=== PATIENT | female | born 2000 | race Caucasian/White ===

== ENCOUNTER 2021-09-19 10:46 | Outpatient (CLI) | payer MEDICAID, SELFPAY ==
[2021-09-19 16:49] LABS: Ferritin* 5.1 ng/mL (6.24-137.0)
[2021-09-21 00:54] LABS: Rapid Plasma Reagin (RPR) Non Reactive (Non Reactive)
== END 2021-09-19 10:47 | disposition home or self-care (01) ==
LOC: NFLDREF 10:46
PROVIDERS: Visit Provider Advanced Practice Midwife
DX: Z34.90 Encounter for supervision of normal pregnancy, unspecified, unspecified trimester (principal)
CPT/HCPCS: 82728; 86592

== ENCOUNTER 2021-10-04 08:30 | Outpatient (RCR) | payer MEDICAID, SELFPAY ==
--- NOTE | 2021-09-25 14:40 | URNOTE ---
Received request for prior auth for Injectafer ([id number]). Per Estephania at [facility], prior auth is not required. Call ref #[id number]
[2021-09-27] MEDS: FERRIC CARBOXYMALTOSE 750 MG in 0.9 % SODIUM CHLORIDE 250 ml 250 ML 1060 MG IVPB (09:02)
[2021-09-27] MEDS: 0.9 % SODIUM CHLORIDE 250 ml IV (09:14)
[2021-09-27] MEDS: SODIUM CHLORIDE 0.9 % (FLUSH) 10 ML SYRINGE IVF ×2 (09:14→09:39)
[2021-09-27 10:03] VITALS: BP 105/68; PULSE 80; RESP 16; TEMP 36.4; O2SAT 99
[2021-10-04 08:33] VITALS: BP 107/68; PULSE 90; RESP 16; TEMP 36.7; O2SAT 97
[2021-10-04] MEDS: FERRIC CARBOXYMALTOSE 750 MG in 0.9 % SODIUM CHLORIDE 250 ml 250 ML 1060 MG IVPB (09:05)
[2021-10-04] MEDS: SODIUM CHLORIDE 0.9 % (FLUSH) 10 ML SYRINGE IVF (09:05)
[2021-10-04] MEDS: 0.9 % SODIUM CHLORIDE 250 ml IV (09:46)
[2021-10-04 10:00] VITALS: BP 94/60; PULSE 94; RESP 14; TEMP 36.1; O2SAT 96
== END 2022-03-26 23:59 | disposition home or self-care (01) ==
LOC: CCIC 08:30
PROVIDERS: PCP Registered Nurse; Visit Provider Clinical Nurse Specialist
DX: O99.012 Anemia complicating pregnancy, second trimester (principal)
CPT/HCPCS: 96365; 96374; J1439; J7050

== ENCOUNTER 2021-10-23 15:57 | Outpatient (CLI) | payer MEDICAID, SELFPAY ==
--- NOTE | 2021-10-23 16:00 | CRLHL7_ITS ---
For Patients: As a result of the Century Cures Act, medical imaging exams and procedure reports are released immediately into your electronic medical record. You may view this report before your referring provider. If you have questions, please contact your health care provider. INDICATION: SIZE LESS THAN DATES, HX IUGR COMPARISON: 07/23/2021 TECHNIQUE: Real time hernandez scale imaging of the fetus was performed. FINDINGS: Sonographic imaging demonstrates a single living intrauterine gestation. Fetus demonstrates a regular cardiac rate of 131 beats per minute. Fetus has a vertex position. The placenta lies posteriorly. Amniotic fluid volume appears normal and there is a single deepest vertical pocket: 4.1 cm. The estimated weight is 2002gm which lies at the 25th%. On the prior OB ultrasound exam dated 07/23/2021 the estimated weight was at the 38th%. BPD 23rd percentile. HC 63rd percentile. AC 22nd percentile. FL 25th percentile. The HC/AC ratio measures 1.12 range (0.96-1.11). Stable anterior fibroid measuring 1.9 x 0.9 x 1.5 cm. IMPRESSION: Sonographic gestational age 33 weeks 0 days and sonographic due date of 12/11/2021. Good correlation with dates. Normal interval growth. Estimated weight 25th percentile. Abdominal circumference 22nd percentile. Stable small anterior uterine fibroid measuring 1.9 x 0.9 x 1.5 cm. Dictated by Adi Askew MD @ 10/24/2021 10:52:40 AM (Electronically Signed)
== END 2021-10-23 15:58 | disposition home or self-care (01) ==
LOC: US 15:58
PROVIDERS: Visit Provider Registered Nurse
DX: O36.5930 Maternal care for other known or suspected poor fetal growth, third trimester, not applicable or unspecified (principal); Z3A.33 33 weeks gestation of pregnancy
CPT/HCPCS: 76816

== ENCOUNTER 2021-11-12 12:55 | Outpatient (CLI) | payer MEDICAID, SELFPAY ==
--- NOTE | 2021-11-12 13:00 | CRLHL7_ITS ---
For Patients: As a result of the Century Cures Act, medical imaging exams and procedure reports are released immediately into your electronic medical record. You may view this report before your referring provider. If you have questions, please contact your health care provider. INDICATION: Third trimester growth, history of IUGR TECHNIQUE: Real time hernandez scale imaging of the fetus was performed as well as color Doppler and spectral Doppler analysis of the umbilical artery. COMPARISON: 10/23/2021 FINDINGS: Sonographic imaging demonstrates a single living intrauterine gestation. Fetus demonstrates a regular cardiac rate of 133 beats per minute. Fetus has a vertex position. The placenta lies posteriorly. Amniotic fluid volume appears normal and there is a single deepest pocket of 2.7 cm. The estimated weight is 2415gm which lies at the 13th %. On the prior OB ultrasound dated 10/23/2021 the estimated weight was at the 25th percentile. There is adequate diastolic blood flow within the umbilical artery. The S/D ratio measures 3.1. The fetus was active and demonstrated normal breathing movements. There was normal flexion and extension of the trunk and extremities. Small anterior uterine fibroid again noted. IMPRESSION: Normal biophysical profile score 8/8. Sonographic gestational age 35 weeks 0 days and sonographic due date 12/17/2021. Sonographic age 1 week behind the clinical age. Estimated weight 13th percentile. Abdominal circumference 5th percentile. Dictated by Adi Askew MD @ 11/12/2021 2:08:41 PM (Electronically Signed)
== END 2021-11-12 12:56 | disposition home or self-care (01) ==
LOC: US 12:56
PROVIDERS: Visit Provider Physician Assistant
DX: O36.5930 Maternal care for other known or suspected poor fetal growth, third trimester, not applicable or unspecified (principal); Z3A.35 35 weeks gestation of pregnancy
CPT/HCPCS: 76816; 76819; 76820

== ENCOUNTER 2021-11-12 14:17 | Outpatient (CLI) | payer MEDICAID, SELFPAY ==
[2021-11-13 11:50] LABS: Strep B DNA Probe POSITIVE (Negative)
== END 2021-11-12 14:18 | disposition home or self-care (01) ==
LOC: NFLDREF 14:17
PROVIDERS: Visit Provider Physician Assistant
DX: Z34.90 Encounter for supervision of normal pregnancy, unspecified, unspecified trimester (principal)
CPT/HCPCS: 87081; 87653

== ENCOUNTER 2021-11-19 10:56 | Outpatient (CLI) | payer MEDICAID, SELFPAY ==
--- NOTE | 2021-11-19 11:00 | CRLHL7_ITS ---
For Patients: As a result of the Cures Act, medical imaging exams and procedure reports are released immediately into your electronic medical record. You may view this report before your referring provider. If you have questions, please contact your health care provider. OBSTETRICAL ULTRASOUND, 11/19/2021 CLINICAL HISTORY: IUGR. 2, para 1. DAVID by LMP: 12/10/2021 GESTATIONAL AGE: 37 weeks 0 days TECHNIQUE: Transabdominal pelvic ultrasound. FINDINGS: Cervix: Not visualized. position: Single fetus in vertex position. Amniotic fluid: 4.8 cm SDP. Placenta: Posterior. heart rate: 128 bpm. Umbilical artery S/D ratio: #1: 2.8, #2: 3.6 ( > 34 weeks = < 3.5) BIOPHYSICAL PROFILE Movement: 2 Tone: 2 Breathin Fluid: 2 Biophysical profile score: 8/8 IMPRESSION: Single live intrauterine gestation with biophysical profile score of 8 of 8. Umbilical artery systolic-diastolic ratio measures between 2.8 and 3.6. ANA CARDONA M.D. Diagnostic/Breast Radiologist [email or web address] Transcribed: 1:[address]/Dictated by: Ana Cardona MD @ 11/19/2021 11:44:00 AM (Electronically Signed)
== END 2021-11-19 10:57 | disposition home or self-care (01) ==
LOC: US 10:57
PROVIDERS: Visit Provider Physician Assistant
DX: O36.5930 Maternal care for other known or suspected poor fetal growth, third trimester, not applicable or unspecified (principal); O99.013 Anemia complicating pregnancy, third trimester; Z3A.37 37 weeks gestation of pregnancy
CPT/HCPCS: 76819; 76820

== ENCOUNTER 2021-11-26 15:47 | Inpatient (IN) | payer MEDICAID, SELFPAY ==
--- NOTE | 2021-11-26 13:00 | CRLHL7_ITS ---
For Patients: As a result of the Century Cures Act, medical imaging exams and procedure reports are released immediately into your electronic medical record. You may view this report before your referring provider. If you have questions, please contact your health care provider. INDICATION: Asymmetric growth restriction. TECHNIQUE: Ultrasound OB pelvis transabdominal. Real-time hernandez-scale imaging of the fetus was performed without stress testing. COMPARISON: 11/19/2021. FINDINGS: Sonographic imaging demonstrates a single living intrauterine gestation. Fetus demonstrates a regular cardiac rate of 131 beats per minute. Fetus has a cephalic orientation. Umbilical artery systolic/diastolic ratio is inconsistent ranging from 3.3 to 8.3. Amniotic fluid volume single deepest pocket 3.4 Cm 2/2. motion 2/2. tone 2/2. breathing movements 2/2. IMPRESSION: Single viable intrauterine with a biophysical profile 09/24. Dictated by Tito Zuniga MD @ 11/26/2021 2:32:08 PM (Electronically Signed)
[2021-11-26 15:45] VITALS: BP 121/72; PULSE 127; RESP 18; TEMP 37.6; O2SAT 100
--- NOTE | 2021-11-26 17:24 | P.LDBA_ITS ---
Subjective History of Present Illness Narrative: Patient is being admitted to Labor and Delivery for IOL for IUGR. She is a 21 year old at 38 0/7 weeks gestation. She has been followed for IUGR with regular BPP and doppler. Today, she had BPP 8/8, normal fluid, but one of 3 UA doppler readings was elevated. She also has history of previous for breech presentation. OB Problem List: Partner: Víctor, currently in [place] (detained at the border when her attempted to cross back into the [place]: 07/23/21). Girl at home: Angie. 11/12/21: ? Patient reported partner deported to [place] 1. Previous : Breech & IUGR ? ? Desires TOLAC ? ? Chance of successful : 61% ? ?? consent signin11/26/2021 ? ? Growth ultrasound 36 weeks:??Asymmetric growth restriction.?EFW 13%, BDP 12%, HC 53%,?AC 5%, FL 20% Weekly BPP with Dopplers: - Elevated dopplers today: 11/26/2021 - Will move towards delivery today at 38 0/7 due to FGR with elevated doppler 2. 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 Rubella nonimmune: MMR 5. Nausea and vomiting. ED visit at [place] [id number] 06/09/2021:? IV fluids and started Reglan? 6. Anemia Hemoglobin 9.8 1st OB Ferrous sulfate 325 06/26/2021:? Reported discontinuing ferrous sulfate secondary to constipation Hemoglobin 06/26/2021:? 10.4.? Will restart iron supplementation with stool softener HGB 8.9 on 09/19. She has been unable to tolerate PO iron. Iron infusions ordered. Also encouraged EOD supplementation with Floradix or Iferex.? 10-16-21:? Hemoglobin:? 11.0 11/12/21: hgb 12.5 7. History of seizures in 2011 or 2012 and again in April 2020. Pt states that they never found a cause and she was never treated. Experienced seizure like activity at the end of July and again 09/17/21. Neurologist referral placed on 09/19/2021. 10/03 Neurologist visit-more consistant with pre-syncpoe but wants to r/o seizures. EEG: normal, normal EKG. 11/12/21: patient reports 6 hour EEG results are pending 8. Meningitis in 2020 9. S<D @ 32 weeks:? Growth ultrasound:EFW 25%, AC 22% 10. Declined Tdap at 32 weeks.? Please offer again at next visit. Declined again at 33 week visit 11. GBS positive Covid: Flu: declines Tdap: declines 10/23/21 NEEDS pap pp Her full history and physical was dictated by Dr. Almanza today. Please see this for details. OB - H&P: Exam Physical Exam: Vital signs: Temp Pulse Resp BP Pulse Ox 99.7 F H 127 H 18 121/72 100 11/26/21 15:45 11/26/21 15:45 11/26/21 15:45 11/26/21 15:45 11/26/21 15:45 Narrative: Cervix 1 cm, 75%, high, anterior, moderate consistency. Vertex. heart tones: Baseline 130, accelerations present, no decelerations, moderate variability. OB - Problem Based A/P Additional Plan (1) Asymmetric intrauterine growth restriction: Status: Acute Plan: at 38 weeks, 0 days gestation with IUGR and newly elevated Doppler. Plan is induction of labor. Given previous , we must avoid prostaglandins for ripening. Thus, Cook catheter was placed with the help of sterile speculum in an aseptic fashion with the balloon tip within the lower uterine segment. This was in flated to 60 mL, and the vaginal balloon was inflated to 40. Patient tolerated this procedure well. Begin oxytocin upon removal of Cook catheter at 4:30 a.m.. Begin ampicillin for GBS positive status at midnight. Anticipate attempt at AROM in the morning. Currently with category 1 tracing. Continue monitoring throughout the night. (2) Patient desires vaginal after section (): Status: Acute (3) : Status: Acute (4) Positive GBS test: Status: Acute
[2021-11-26 18:32] LABS: Basophils Absolute Auto 0.02 K/uL (0.00-0.30); Basophils Percent Auto 0.2 % (0.0-3.0); Eosinophils Absolute Auto 0.04 K/uL (0.00-0.50); Eosinophils Percent Auto 0.4 % (0.0-7.0); Hematocrit 38.9 % (33.0-51.0); Hemoglobin* 12.9 gm/dL (12.0-16.0); Immature Granulocytes Abs Auto 0.03 K/uL (0.00-0.30); Lymphocytes Percent Auto 16.2 % (20-44); Mean Corpuscular HGB Conc 33 gm/dL (32-36); Mean Corpuscular Hemoglobin 28 pg (26-34); Mean Corpuscular Volume 85 fL (80-100); Monocytes Percent Auto 4.4 % (0.0-11.0); Neutrophils Percent Auto 78.5 % (42.0-72.0); Platelet Count* 268 K/uL (140-440); RDW Coefficient of Variation % 20.4 % (11.5-15.5); Red Blood Count 4.58 m/uL (4.00-5.20); White Blood Count* 10.98 K/uL (4.50-11.00)
[2021-11-26 18:36] VITALS: TEMP 36.6
[2021-11-26 18:37] VITALS: BP 107/64; PULSE 81
[2021-11-26 18:40] LABS: Slide Review Reflex No
[2021-11-26 19:35] LABS: SARS PCR* Negative SARS-CoV-2 (Negative)
[2021-11-26] MEDS: hydrOXYzine pamoate 25 MG CAPSULE 100 MG PO (20:13)
[2021-11-26] MEDS: MORPHINE 10 MG/ML inj IM (20:29)
[2021-11-26 22:30] VITALS: BP 104/58; PULSE 77
[2021-11-26 22:48] VITALS: TEMP 36.6
[2021-11-27] VITALS (70 sets, daily range): BP systolic 82–140; BP diastolic 36–81; PULSE 73–173; RESP 16; TEMP 36.8–37.2; O2SAT 86–100
[2021-11-27] MEDS: LACTATED RINGERS 1000 ML 1,000 ML 10 ML IV (00:04)
[2021-11-27] MEDS: AMPICILLIN 2 GM in 0.9 % SODIUM CHLORIDE Mini-bag 100 ML IVPB (00:04)
[2021-11-27] MEDS: AMPICILLIN 1 GM in 0.9 % SODIUM CHLORIDE Mini-bag 100 ML IVPB ×3 (04:48→13:42)
[2021-11-27] MEDS: OXYTOCIN 30 unit/500 ML in NS 30 UNIT/500 ML BAG IVPB (04:49)
[2021-11-27] MEDS: fentaNYL 100 MCG/2 ML inj IVP ×2 (11:37→12:13)
[2021-11-27] MEDS: LACTATED RINGERS 1000 ML 1,000 ML 125 ML IV ×2 (14:30→17:13)
[2021-11-27] MEDS: ROPIVACAINE 0.2% 100 ml 100 ML 10 MG EPIDURAL (14:44)
[2021-11-27] MEDS: LIDOCAINE 2% (PF) 5 ML VIAL EPIDURAL (14:44)
--- NOTE | 2021-11-27 14:47 | P.ANBPRC_ITS ---
[facility] Medical History Fainting spell History of prior with small for gestational age Mild episode of recurrent major depressive disorder (01/07/19) Vitamin D deficiency (01/07/19) Surgical History (Updated 09/13/21 @ 14:26 by Edward Weldon) History of delivery, antepartum Social History Smoking Status: Never smoker Meds Home Medications and Allergies Home Medications Medication Instructions Recorded Confirmed Type calcium carbonate 200 mg calcium 200 mg PO QID 09/27/21 11/26/21 History (500 mg) chewable tablet (Antacid (calcium carbonate)) Allergies Allergy/AdvReac Type Severity Reaction Status Date / Time No Known Allergies Allergy Verified 11/26/21 13:54 Results Labs Labs: Laboratory Results - last 24 hr 11/26/21 11/26/21 11/26/21 18:18 18:18 Unknown WBC 10.98 RBC 4.58 Hgb 12.9 Hct 38.9 MCV 85 MCH 28 MCHC 33 RDW Coeff of Derick 20.4 H Plt Count 268 Neut % (Auto) 78.5 H Lymph % (Auto) 16.2 L Villalba % (Auto) 4.4 Eos % (Auto) 0.4 Baso % (Auto) 0.2 Neut # (Auto) 8.60 H Lymph # (Auto) 1.80 Villalba # (Auto) 0.50 Eos # (Auto) 0.04 Baso # (Auto) 0.02 Abs Immat Gran (auto) 0.03 SARS-CoV-2 (PCR) Negative SARS-CoV-2 Blood Type AB Positive Antibody Screen NEGATIVE Crossmatch (AHG) See Detail Vital Signs Vital Signs: Last Vital Signs Temp 98.6 F 11/27/21 14:47 Pulse 125 H 11/27/21 14:46 Resp 18 11/26/21 15:45 BP 101/59 L 11/27/21 14:46 Pulse Ox 100 11/27/21 14:40 Weight: 164.8 kg Height: 152.4 cm Anesthesia Procedures Epidural Insertion Patient Location: OB Start Time: 14:15 Stop Time: 15:00 Start Date: 11/27/21 Stop Date: 11/27/21 Reason for Block: primary anesthetic Patient Position: sitting Performed By: Jair Lewis Preanesthetic Checklist: IV checked, risks and benefits discussed, surgical consent, monitors and equipment checked, pre-op evaluation, timeout performed and anesthesia consent Prep: chlorhexidine gluconate Monitoring: blood pressure monitoring, court recording monitor, continuous pulse oximetry and heart rate Approach: midline Vertebral Space: lumbar (1-5) Needle Type: Tuohy needle Injection Technique: continuous catheter (catheter) Needle gauge: 17 Needle Length (cm): 10 cm Needle Insertion Depth (cm): 5 Catheter Gauge: 19 Catheter Type: multi-orifice Catheter at skin depth (cm): 10 Test Dose Result: negative and lidocaine 1.5% with epinephrine 1 to 200,000
--- NOTE | 2021-11-27 18:48 | PM.OBPRCVD ---
Procedure Delivery date: 11/27/21 Procedure Done: Global Events: Previous and Labor Induction Intrapartal Events: None Induction method: per pitocin protocol Delivery augmentation: rupture of membranes and pitocin Delivery monitor: external FHT Route of delivery: Episiotomy description: None Laceration description: Labial Delivery repair: Chromic Estimated blood loss (mL): 100 Anesthesia type: Epidural Disposition: floor Gender: Male presentation: vertex Placental Delivery Description: Spontaneous Cord Description: 3 Vessels OB Vag Delivery Procedures Additional Procedures ECV: No Cook Catheter Insertion: Yes NST: Yes D&C: No Laceration Repair: Yes Tubal Ligation : No Other: No Procedure Details: The patient is a 21 year-old G 2 P 1001 admitted on 11/26/2021 at 38 and 0/7 weeks gestation for TOLAC. Cervical exam on admission was 1 cm/25 % effaced/-4 station with membranes intact in vertex presentation. Contractions were every 10- 20 minutes. Category I tracing. GBS positive, treated with ampicillin during labor. AROM occurred at 1400 on 11/27 with clear fluid. Labor Analgesia: Epidural Pitocin: Yes Labor onset: 11/27 at 1500 Complete: 11/27 at 1751 Pushin/11 at 1800 Delivery: 11/27 at 1817 heart tones during second stage were Cat I a viable male infant delivered in vertex presentation over intact perineum via spontaneous vaginal delivery. was placed on maternal abdomen. Cord was clamped and cut after a 30-60 second delay. Nose and mouth were bulb suctioned. Infant weight: pending. 8 at 1 minute and 9 at 5 minutes. Shoulder dystocia: No. Nuchal cord: No . Placenta delivered spontaneously and complete at 18 20 with a 3 vessel cord. Complications: None. Mother and were stable after delivery. Laceration(s): First-degree, repaired with 2-0 chromic. Estimated blood loss: 100 mL. Sponge and needles counts are correct. Mother and were stable at the time of this note. Flor is planning on breast feeding. Infant name is Daniel
[2021-11-27] MEDS: IBUPROFEN 600 MG TABLET PO (22:03)
[2021-11-28 01:25] VITALS: BP 88/57; PULSE 91; RESP 16; TEMP 36.6; O2SAT 98
[2021-11-28] MEDS: ACETAMINOPHEN 500 MG TABLET 1000 MG PO ×2 (02:53→09:31)
[2021-11-28 04:45] VITALS: BP 95/60; PULSE 76; RESP 16; TEMP 36.4; O2SAT 99
[2021-11-28 05:26] LABS: Hemoglobin* 11.5 gm/dL (12.0-16.0)
[2021-11-28 07:35] VITALS: BP 101/66; PULSE 75; RESP 16; TEMP 36.5; O2SAT 99
--- NOTE | 2021-11-28 08:29 | PM.OBPNVD1 ---
OB - PN:Subj Subjective Time Seen by Provider: 08:00 Date Seen: 11/28/21 Interval history: Patient is a 21year old, G 2 now P 2? admitted on 11/27/21 at 39 Weeks, 0 Days gestation for IOL for IUGR.? She had an uncomplicated delivery.? She delivered a viable infant.? She is bottle feeding and the baby is not feeding well.? the patient has done well.? Vitals have been stable.? She has remained afebrile. SHe is passing gas, but has not had a bowel movement. Is having increased Patient comments OB post-: no complaints and pain well controlled [place] infant status: bottle feeding status: exclusively bottle feeding OB - PN: Obj Exam Physical Exam: Vital signs: Temp Pulse Resp BP Pulse Ox O2 Del Method 97.6 F 76 16 95/60 99 11/28/21 04:45 11/28/21 04:45 11/28/21 04:45 11/28/21 04:45 11/28/21 04:45 11/28/21 04:45 Constitutional: Constitutional: no acute distress and cooperative Routine HEENT Exam: Head: Present normocephalic Routine Neck Exam: Neck: Present full ROM Routine Respiratory Exam: Respiratory: Present CTA bilaterally Routine Cardiovascular Exam: Cardiovascular: Present RRR Routine Abdominal Exam: Abdominal: Present normal bowel sounds Fundus: Present firm (@U) Routine Extremities Exam: Extremities: Present full ROM Routine Back/Spine/Pelvis Exam: Back/Spine: Present full ROM Routine Skin Exam: Skin: Present dry and warm Routine Neurological Exam: Neurological: Present alert and oriented X3 Routine Psychiatric Exam: Psychiatric: Present normal affect and normal thought process Wound Management: Comments: Perineum healing well, mild edema OB - PN: Obj Data Labs Labs: Laboratory Results - last 24 hr 11/28/21 05:15 Hgb 11.5 L OB - PN: A/P Vaginal Delivery Assessment and Plan (1) Asymmetric intrauterine growth restriction: Status: Acute (2) Patient desires vaginal after section (): Status: Acute Plan day: 1 Plan: routine care Comments: Continue routine PP care Anticipate discharge home tomorrow Continue to work with nursing for feeds as needed.
[2021-11-28] MEDS: DOCUSATE SODIUM 100 MG CAPSULE PO (09:31)
[2021-11-28 12:05] VITALS: BP 103/72; PULSE 71; RESP 18; TEMP 36.6; O2SAT 97
[2021-11-28 16:27] VITALS: BP 98/66; PULSE 70; RESP 18; TEMP 36.7; O2SAT 97
[2021-11-28 16:50] LABS: Rubella Antibody IgG 7.2 IU/mL
[2021-11-28] MEDS: MEASLES,MUMPS,RUBELLA VACC/PF 1 DOSE INJ 1 EACH SUBCUT (18:59)
--- NOTE | 2021-12-11 16:17 | PM.OBDSVD1 ---
DS: Providers Provider Date Seen: 11/28/21 Date of admission: 11/26/21 15:47 Primary care physician: Not a Local Provider Attending Physician on discharge: Aria Umana MD DS: Diagnosis Discharge Diagnosis (1) , delivered: Status: Acute Exam Narrative: Exam Narrative: See progress note dated today by Norma Mejia. OB - DS: Summary Hospital Course Hospital Course: Patient is a 21year old, G 2 now P 2? admitted on 11/27/21 at 39 Weeks, 0 Days gestation for IOL for IUGR.? She had an uncomplicated delivery.? She delivered a viable? infant.? She is bottle feeding and the baby is not feeding well.? the patient has done well.? Vitals have been stable.? She has remained afebrile.? She is passing gas, but has not had a bowel movement.? Is having increased Patient comments OB post-: no complaints and pain well controlled. [place] infant status: bottle feeding status: exclusively bottle feeding Peripartum Data delivery method: [place] Gender: Male Time Spent with Patient Time attestation: Total time spent providing and/or coordinating discharge services: Discharge Plan Discharge Disposition: Home, Self-Care Date of Admission: 11/26/21 15:47 Attending Provider on Discharge: Aria Umana Consulting Providers: Norma Mejia Ngoc B Primary Care Provider: Provider,Not a Local Condition: Stable Anticipated Discharge Date/Time: 11/28/21 19:00 Discharge Medications: No Action acetaminophen [Tylenol] 325 mg capsule 325 mg PO ONCE PRN ibuprofen 200 mg capsule 400 mg PO Q8H Discharge Orders: Discharge Order (Routine); Ordered 11/28/21 Ordered By: Aria Umana Patient Education: OB Over the Counter Medication Information, OB Vaginal/Bottle Feeding Additional Instructions: Off Work or School for 6 weeks. Follow Up with [facility] provider in 2 weeks and 6 weeks at [facility] clinic. consultation services are available to all mothers and babies for the first year after delivery.? To make an appointment, please call [phone]. Activity Detail: Nothing in the vagina for 6 weeks. Discharge Diet: Regular Follow Up Appointments: Provider,Not a Local [Primary Care Provider] - Forms: [employer] Info Instructions
== END 2021-11-28 19:05 | disposition home or self-care (01) | DRG 807 ==
LOC: OB 15:55
PROVIDERS: Obstetrics & Gynecology; Physician Assistant; Admitting Provider Obstetrics & Gynecology; Visit Provider Obstetrics & Gynecology
DX: O34.211 Maternal care for low transverse scar from previous cesarean delivery (principal); Z37.0 Single live birth; O99.824 Streptococcus B carrier state complicating childbirth; O70.0 First degree perineal laceration during delivery; O99.02 Anemia complicating childbirth; D64.9 Anemia, unspecified; O36.5930 Maternal care for other known or suspected poor fetal growth, third trimester, not applicable or unspecified; Z3A.39 39 weeks gestation of pregnancy
CPT/HCPCS: 01967; 36415; 59200; 76819; 76820; 85018; 85025; 86762; 86850; 86900; 86901; 86922; 87635; A9270; C1726; J0290; J2270; J2795; J3010; J7120

== ENCOUNTER 2022-11-29 07:11 | Outpatient (CLI) | payer MEDICAID, SELFPAY ==
--- NOTE | 2022-11-29 07:15 | CRLHL7_ITS ---
For Patients: As a result of the Cures Act, medical imaging exams and procedure reports are released immediately into your electronic medical record. You may view this report before your referring provider. If you have questions, please contact your health care provider. INDICATION: First trimester scan, establish dates. COMPARISON: None. TECHNIQUE: Real-time hernandez-scale imaging of the pelvis was performed. FINDINGS: Sonographic imaging demonstrates a single living intrauterine gestation. The embryo demonstrates a regular cardiac rate measuring 168 beats per minute. The embryo`s crown-rump length measurement of 4.8 cm corresponds to a gestational age of 11 weeks 4 days with a sonographic due date of 06/16/2023. The yolk sac is not visualized. There are no gross abnormalities noted within the embryo at this early state of development. The gestational sac has a normal appearance. There is no evidence of a perigestational hemorrhage. The amount of fluid within the sac appears appropriate for gestational age. The cervix is closed. The myometrium appears normal. The ovaries are of normal size. There are no suspicious fluid collections noted in the cul-de-sac. IMPRESSION: Single living intrauterine with sonographic gestational age 11 weeks 4 days and sonographic due date 06/16/2023. Dictated by Adi Askew MD @ 11/29/2022 9:02:07 AM (Electronically Signed)
== END 2022-11-29 07:12 | disposition home or self-care (01) ==
PROVIDERS: Visit Provider Advanced Practice Midwife
DX: Z34.91 Encounter for supervision of normal pregnancy, unspecified, first trimester (principal); Z3A.11 11 weeks gestation of pregnancy
CPT/HCPCS: 76801

== ENCOUNTER 2022-11-29 09:02 | Outpatient (CLI) | payer MEDICAID, SELFPAY | END 2022-11-29 09:03 | disposition home or self-care (01) | PROVIDERS: Visit Provider Advanced Practice Midwife | DX: Z34.91 Encounter for supervision of normal pregnancy, unspecified, first trimester (principal); Z3A.11 11 weeks gestation of pregnancy | CPT/HCPCS: 86592; 86703; 86704; 86706; 86762; 86787; 86803; 86850; 86900; 86901; 87086; 87340 ==

== ENCOUNTER 2023-01-01 10:22 | Outpatient (CLI) | payer MEDICAID, SELFPAY | END 2023-01-01 10:23 | disposition home or self-care (01) | LOC: NFLDREF 01-07 12:14 | PROVIDERS: Visit Provider Obstetrics & Gynecology | DX: Z34.90 Encounter for supervision of normal pregnancy, unspecified, unspecified trimester (principal) | CPT/HCPCS: 87491; 87591 ==

== ENCOUNTER 2023-02-05 08:06 | Outpatient (CLI) | payer MEDICAID, SELFPAY ==
--- NOTE | 2023-02-05 08:15 | CRLHL7_ITS ---
For Patients: As a result of the 21st Century Cures Act, medical imaging exams and procedure reports are released immediately into your electronic medical record. You may view this report before your referring provider. If you have questions, please contact your health care provider. INDICATION: Anatomy. LMP: 09/12/2022. DAVID by LMP: 06/19/2023. GA: 20w, 6d. FINDINGS: position: Multiple positions. Cervix: Visualized. visualized. Technique: Transabdominal. Length of closed cervix: 4.3 cm. Placenta/cord: Posterior. Technique: Transabdominal. Placenta tip to internal OS: 6.2 cm. Umbilical Cord: 3-vessel cord. Placenta insertion: Marginal (within 2 cm of placenta edge). Amniotic Fluid: 4.8 cm SDP (greater than/equal to: 2- less than 8 cm). SURVEY: Observed Structures Calvarium/Spine: Cerebellum: 2.1 cm, 21w 2d. Cisterna Magna: 3.8 mm. Nuchal Fold: 4.9 mm. Lateral Ventricle: 5.0 mm. CSP: Yes. Midline Falx: Yes. Choroid Plexus: Yes. Spine: Yes. Abdomen: Stomach: Yes. Abd Cord Insertion: Yes. Urinary Bladder: Yes. Kidneys: Yes. Diaphragm: Yes. Face: Nose/lips: Yes. Orbital view: Yes. Profile: Yes. Limbs: Upper Extremities: Yes. Lower Extremities: Yes. Hands: Yes. Feet: Yes. Vascular: Four-Chamber Heart: Yes. LVOT: Yes. RVOT: Suboptimally seen. 3VV: Yes. 3VTV: Yes. BPD: 4.6 cm. 19w 6d, 13 percent. HC: 18.2 cm. 20w 4d, 31 percent. AC: 16.0 cm. 21w 1d, 53 percent. FL: 3.5 cm. 21w 0d, 44 percent. FL/AC: 21.65 percent. HC/AC Ratio: 1.14. Heart rate: 145 beats per minute. age by this US: 20w 5d. DAVID by this US: 06/20/2023. EFW: 388.92 g. Weight: 0 lbs, 14 oz. Percentile by DAVID: 50.2 percent. IMPRESSION: 1. Single live intrauterine gestation. No gross anomalies visualized. The right ventricular outflow tract suboptimally seen. 2. Marginal cord insertion 1.9 cm from the placenta edge. Ana Cardona M.D. Diagnostic/Breast Radiologist [email or web address] BELLO/jeramy / be/Dictated by: Ana Cardona MD @ 02/06/2023 3:27:00 PM (Electronically Signed)
== END 2023-02-05 08:07 | disposition home or self-care (01) ==
PROVIDERS: Visit Provider Obstetrics & Gynecology
DX: Z34.92 Encounter for supervision of normal pregnancy, unspecified, second trimester (principal); Z3A.20 20 weeks gestation of pregnancy
CPT/HCPCS: 76805

== ENCOUNTER 2023-04-01 08:00 | Outpatient (CLI) | payer MEDICAID, SELFPAY | END 2023-04-01 08:01 | disposition home or self-care (01) | LOC: NFLDREF 04-03 11:00 | PROVIDERS: Visit Provider Obstetrics & Gynecology | DX: Z34.93 Encounter for supervision of normal pregnancy, unspecified, third trimester (principal); Z3A.28 28 weeks gestation of pregnancy | CPT/HCPCS: 86592 ==

== ENCOUNTER 2023-04-01 08:11 | Outpatient (CLI) | payer MEDICAID, SELFPAY ==
--- NOTE | 2023-04-01 08:15 | US_ITS ---
Patient: FLORINA MITCHELL Facility:?[facility] Patient ID:?[id number] Site Patient ID:?[id number]. Site :?[id number] Study:?US-OB Pelvis growth check-04/01/2023 10:29:19 AM Ordering Physician:HINA Final Report: INDICATION: Third trimester scan, evaluate growth. COMPARISON: 02/05/2023 TECHNIQUE: Real time hernandez scale imaging of the fetus was performed. FINDINGS: Sonographic imaging demonstrates a single living intrauterine gestation. Fetus demonstrates a regular cardiac rate of 155 beats per minute. Fetus has a micheline breech position. The placenta lies posteriorly without evidence of placenta previa. Amniotic fluid volume appears normal and there is a single deepest vertical pocket: 4.8 cm. The estimated weight is 1261gm which lies at the 34th %. On the prior OB ultrasound exam dated 02/05/2023 the estimated weight was at the 50th%. BPD 17th percentile. HC 14th percentile. AC 63rd percentile. FL 12th percentile. The HC/AC ratio measures 1.04 range (1.01-1.21). IMPRESSION: Marginal cord insertion again noted. Sonographic gestational age 28 weeks 3 days and sonographic due date of 06/21/2023. Good correlation with dates. Normal interval growth. Estimated weight 34th percentile. Abdominal circumference 63rd percentile. Dictated by Adi Askew MD @ 04/04/2023 6:50:37 AM Signed by:?Adi Askew MD @04/04/2023 6:50:37 AM (Electronic Signature)
== END 2023-04-01 08:12 | disposition home or self-care (01) ==
LOC: US 08:13
PROVIDERS: Visit Provider Obstetrics & Gynecology
DX: Z34.93 Encounter for supervision of normal pregnancy, unspecified, third trimester (principal); Z3A.28 28 weeks gestation of pregnancy
CPT/HCPCS: 76816

== ENCOUNTER 2023-05-13 14:06 | Outpatient (CLI) | payer MEDICAID, SELFPAY | END 2023-05-13 14:07 | disposition home or self-care (01) | LOC: NFLDREF 14:07 | PROVIDERS: Visit Provider Registered Nurse | DX: Z34.93 Encounter for supervision of normal pregnancy, unspecified, third trimester (principal); Z3A.34 34 weeks gestation of pregnancy | CPT/HCPCS: 87086; 87186 ==

== ENCOUNTER 2023-05-22 11:58 | Outpatient (CLI) | payer MEDICAID, SELFPAY ==
--- NOTE | 2023-05-22 12:15 | US_ITS ---
Patient: FLORINA MITCHELL Facility:?[facility] Patient ID:?[id number] Site Patient ID:?[id number]. Site :?[id number] Study:?US-OB Pelvis GROWTH-05/22/2023 12:37:26 PM Ordering Physician:MARGIE HERNÁNDEZ Final Report: OBSTETRICAL ULTRASOUND DAVID by LMP: 06/19/2023. GA: 36 weeks 0 days. Gestation: Bar. COMPARISONS: 04/01/2023, 02/05/23, 11/29/2022. INDICATION: Desires . Growth. Cervix: Visualized. Position: Vertex. Amniotic Fluid: 3.8 cm SDP (N: ? 2x 1 cm) Placenta Technique: TA. Placenta Position: Posterior. Heart Rate: 145 bpm. BIOMETRY BPD: 9.1 cm, 36 weeks 6 days, 79th percentile. HC: 31.6 cm, 35 weeks 3 days, 12th percentile. AC: 33 cm, 36 weeks 6 days, 83rd percentile. FL: 6.8 cm, 35 weeks 0 days, 21st percentile. FL/AC Ratio: 20.64 percent. HC/AC Ratio: 0.96. EFW: 2893 grams, 6 pounds 6 ounces. Age by this US: 36 weeks 0 days. DAVID by this US: 06/19/2023. Percentile by DAVID: 59 percent. IMPRESSION: Single live intrauterine gestation at 36 weeks 0 days. DAVID of 06/19/2023. Estimated weight 2893 grams which lies at the 59th percentile. Ana Cardona M.D. Diagnostic/Breast Radiologist [email or web address] BELLO/shanti / DW/Dictated by: Ana Cardona MD @ 05/24/2023 7:48:00 PM Signed by:?Ana Cardona MD @05/25/2023 7:43:54 PM (Electronic Signature)
== END 2023-05-22 11:59 | disposition home or self-care (01) ==
LOC: US 12:00
PROVIDERS: Visit Provider Obstetrics & Gynecology
DX: Z34.93 Encounter for supervision of normal pregnancy, unspecified, third trimester (principal); Z3A.36 36 weeks gestation of pregnancy
CPT/HCPCS: 76816

== ENCOUNTER 2023-05-22 13:30 | Outpatient (CLI) | payer MEDICAID, SELFPAY ==
[2023-05-23 13:35] LABS: Strep B DNA Probe POSITIVE (Negative)
[2023-05-23 13:46] LABS: Strep B Susceptibility Needed? No
== END 2023-05-22 13:31 | disposition home or self-care (01) ==
LOC: NFLDREF 13:44
PROVIDERS: Visit Provider Obstetrics & Gynecology
DX: Z34.93 Encounter for supervision of normal pregnancy, unspecified, third trimester (principal)
CPT/HCPCS: 87081; 87086; 87653

== ENCOUNTER 2023-05-30 13:38 | Outpatient (CLI) | payer MEDICAID, SELFPAY | END 2023-05-30 13:39 | disposition home or self-care (01) | LOC: NFLDREF 06-06 07:39 | PROVIDERS: Visit Provider Obstetrics & Gynecology | DX: N39.0 Urinary tract infection, site not specified (principal); Z22.322 Carrier or suspected carrier of Methicillin resistant Staphylococcus aureus | CPT/HCPCS: 87086 ==

== ENCOUNTER 2023-06-10 11:38 | Inpatient (IN) | payer MEDICAID, SELFPAY ==
[2023-06-10] VITALS (23 sets, daily range): BP systolic 89–134; BP diastolic 52–77; PULSE 69–113; RESP 16–18; TEMP 36.7–37; O2SAT 91–100; BMI 38.0
[2023-06-10 11:33] LABS: Basophils Percent Auto 0.1 % (0.0-3.0); Eosinophils Percent Auto 0.1 % (0.0-7.0); Hematocrit 35.7 % (33.0-51.0); Immature Granulocytes Pct Auto 0.4 %; Mean Corpuscular HGB Conc 31 gm/dL (32-36); Mean Corpuscular Hemoglobin 24 pg (26-34); Mean Corpuscular Volume 79 fL (80-100); Monocytes Percent Auto 3.1 % (0.0-11.0); Neutrophils Percent Auto 84.3 % (42.0-72.0); Platelet Count* 318 K/uL (140-440); RDW Coefficient of Variation % 14.7 % (11.5-15.5); Red Blood Count 4.55 m/uL (4.00-5.20); White Blood Count* 13.38 K/uL (4.50-11.00)
[2023-06-10 11:42] LABS: Slide Review Reflex No
[2023-06-10] MEDS: AMPICILLIN 2 GM in 0.9 % SODIUM CHLORIDE Mini-bag 100 ML IVPB (11:50)
[2023-06-10] MEDS: LACTATED RINGERS 1000 ML 1,000 ML 125 ML IV (11:50)
[2023-06-10 13:08] LABS: Appearance Urine Clear (Clear); Bilirubin Urine Negative (Negative); Blood Urine Negative (Negative); Color Urine Yellow (Yellow); Glucose Urine Negative (Negative); Ketones Urine 2+ (Negative); Leukocyte Esterase Urine Trace (Negative); Nitrite Urine Negative (Negative); Protein Urine Negative (Negative); Specific Gravity Urine 1.025 (1.000-1.030); Urobilinogen Urine 0.2 (0.2-1.0)
[2023-06-10 13:45] LABS: RBC Urine 0-2 (0-2); Squamous Epithelial Cell Urine Moderate (None-Few)
[2023-06-10] MEDS: OXYTOCIN 30 unit/500 ML in NS 30 UNIT/500 ML BAG 300 UNIT IVPB (13:51)
[2023-06-10] MEDS: LIDOCAINE 1 % PF 30 ML INJECTION (13:55)
[2023-06-10] MEDS: IBUPROFEN 600 MG TABLET PO ×2 (14:36→21:03)
--- NOTE | 2023-06-10 14:52 | P.LDBA_ITS ---
Subjective History of Present Illness Narrative: Patient is being admitted to Labor and Delivery for VTOLAC. She is a 22 year old at 38 5/7 weeks gestation. Her full history and physical was dictated by Dr. Almanza on 05/30/23. Please see this for details. Patient called labor and delivery with concerns of painful contractions. History of 1 previous delivery and 1 successful . Upon arrival patient found 6cm dilated with bulging bag. Admitted in labor for delivery. History of UTI with MRSA, never completed nasal swabs-will need contact precautions. Specific Issues/Plans Desires g/c by urine next visit (ordered on 01/01): Negative 1. Daughter and have extra gene on Chromosome 22, 11.2 Had carrier screening previous, she is not a carrier Anatomy scan: EFW at 50.2% and AC at 53%tile. Normal 2. Hx of : breech & IUGR Had successful tolac in , desires again Chance of success: 86.1% consent signing: signed 05/30/23. Growth ultrasound 36 weeks:?05/22/23: EFW 59%tile, AC 83%tile. SDP 3.8 cm 3. 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 History of seizures in 2011 or 2012 and again in April 2020. Pt states that they never found a cause and she was never treated. Experienced seizure like activity at the end of July and again 09/17/21. 10/03 Neurologist visit-more consistent with pre-syncpoe but wants to r/o seizures. EEG: normal, normal EKG. 11/12/21: EGG normal 34 week visit: Patient reports episodes of feeling faint. Discussed possible etiologies. Encouraged increased hydration and eating small frequent meals. These episodes feel similar to what she experienced prior to seizure activity in the past. She didn't feel that her neurologist evaluated her appropriately and she would like a second opinion. Neurology referral placed. 6. Desires tubal : Plan for consent at 28 weeks: federal sterilization consent form signed on 04/01/23. DECLINED at 36 week visit Contraception: IUD placement (desire paragard) 7. Marginal cord insertion: plan for growth scan at 28 weeks and then 36 weeks 05/22/23: EFW 59%tile, AC 83%tile 8. [id number]: Called the patient and she declined adding MT21 to 28 weeks labs on 03/28/23 9. UTI with MRSA at 34 weeks. Treated with Macrobid BID x7 days. F/u UA: Still symptomatic - will treat with Macrobid BID x 7 days. Covid: Declined Flu: Declined on 01/01 Tdap: Declined 05/22/23 H&P: By Dr. Almanza on 05/30/23 NEEDS pap pp OB - Problem Based A/P Additional Plan (1) : Status: Acute (2) Marginal insertion of umbilical cord: Status: Acute (3) History of delivery, antepartum: Status: Acute Plan Allow labor and expect a vaginal delivery. Continuous monitoring. Interested in nitrous, does not desire epidural. GBS positive, antibiotics per protocol. OR team is in house and aware. OB Exam Physical Exam Vital signs: Temp Pulse Resp BP Pulse Ox 98.5 F 73 18 104/57 L 93 06/10/23 11:30 06/10/23 14:47 06/10/23 11:30 06/10/23 14:47 06/10/23 11:28 Detailed Labor and Delivery Exam Patient Gravid: Yes Dilation (cm): 6 Effacement (%): 90 Cervix position: mid Consistency: soft Contraction Frequency: Regular Tachysystole: No Contraction intensity: Moderate Fetus (Single) Station: -1 Amniotic Membrane Status: intact Heart Rate Baseline: 140 Monitor Accelerations: Present Monitor Decelerations: Variable [facility] Variability: Moderate (6-25)
--- NOTE | 2023-06-10 15:52 | W.PM.OBVAGDE ---
OB Procedure Vag Delivery Mother Details Mother Details: The patient is a 22 year-old, 3, Para 2, admitted on 06/10/23 at 38.5 Days gestation. : 3 Para: 2 Weeks Gestation: 38.5 Admission Date: 06/10/23 Additional Details Amniotic Membrane Status: AROM Amniotic Membrane Rupture Date: 06/10/23 Amniotic Membrane Rupture Time: 13:43 Amniotic Membrane Fluid Description: Clear Analgesia/Anesthesia Type: Nitrous Oxide Waterbirth: No Pitcoin: No Intrapartal Events: Precipitous Labor <3 Hrs Complete: 13:47 Pushin:47 Heart: We had difficulty with monitoring during admission. External monitoring had some episodes were we could not trace FHR due to maternal movement to manage pain of contractions. In general nurses at bedside, attempting replacement as soon as possible. But after 1pm FHR was extremely difficult to continuously monitor. Patient had also become much more symptomatic, she was checked and found at 8cm, bulging bag. We had been trying to avoid interventions such as AROM (GBS positive), but upon my arrival I stressed the importance of FHR monitoring in the case of a TOLAC and mostly close to the second stage of labor. I then recommended performance of AROM and placement of internal monitor. Her cervix was found a rim. heart tones after internal monitor placed showed FHR acceleration, variable deceleration with contractions, but immediately after this patient started to complain of significant pressure and desire to push. Patient pushed for 2 contractions and delivered her baby. Delivery Details Delivery Date: 06/10/23 Delivery Time: 13:50 Infant Gender: Female Infant Viability: Alive; Heart Rate Present Position at Delivery: OA Delivery Details: Delivered over intact perineum via spontaneous vaginal delivery. Cord was clamped and cut after a 30-60 second delay. Nose and mouth were bulb suctioned.? weight pending. Additional Details Shoulder Dystocia: No Placenta Delivery Time: 13:51 Placental Delivery Description: Spontaneous Delivery repair: Vicryl Procedure Done: Global Blood Loss: 100 Laceration: Periurethral - 1st Degree (Bleeding, repaired with Vicryl 4-0) Episiotomy Description: None Blood Loss Measurement Type: QBL Bakri Used: No Sponge/Need Count Correct: Yes Cord Vessel Description: 3 Vessels, Nuchal Cord and Delivered through Event Summary Status: Mother and were stable after delivery. Disposition: floor
[2023-06-10] MEDS: ACETAMINOPHEN 500 MG TABLET 1000 MG PO (20:09)
[2023-06-11] VITALS: BP 94/61; RESP 18; TEMP 36.6; O2SAT 99
[2023-06-11] MEDS: ACETAMINOPHEN 500 MG TABLET 1000 MG PO ×4 (01:51→22:25)
[2023-06-11] MEDS: IBUPROFEN 600 MG TABLET PO ×3 (03:01→20:31)
[2023-06-11 04:20] VITALS: BP 103/67; RESP 18; TEMP 36.6; O2SAT 96
--- NOTE | 2023-06-11 08:06 | PM.OBPNVD1 ---
OB - PN:Subj Subjective Date Seen: 06/11/23 Patient comments OB post-: no complaints, pain well controlled, tolerating diet and flatus present [place] status: bottle and doing well feeding status: exclusively bottle feeding Narrative: The patient feels well.? The pain is well controlled with current medications.? She has no new complaints.? Urinary output is adequate and she is voiding without difficulty.? Has a good appetite, is tolerating a general diet, is passing flatus, and has not had a bowel movement.? Has small amount of rubra lochia.? She is ambulating well.?She is bottle feeding and we discussed suppression. She was inadequately treated for GBS due to precipitous delivery so she will plan to stay until with baby. OB - PN: Obj Exam Physical Exam: Vital signs: Temp Pulse Resp BP Pulse Ox O2 Del Method 97.9 F 70 18 103/67 96 Room Air 06/11/23 04:20 06/10/23 16:02 06/11/23 04:20 06/11/23 04:20 06/11/23 04:20 06/11/23 04:20 Narrative: GENERAL APPEARANCE:? normal affect, alert, no distress? MOOD:? appropriate? CHEST:? clear to auscultation and percussion? HEART:? regular rate and rhythm? ABDOMEN:? soft, non-tender the uterine fundus is U/2 and is appropriate for the stage of recovery.? PERINEUM:? mild edema of the perineum, there is a 1st degree periurethral that is healing well.? EXTREMITIES:? normal and no edema? OB - PN: Obj Data Labs Labs: Laboratory Results - last 24 hr 06/10/23 06/10/23 11:25 Unknown WBC 13.38 H RBC 4.55 Hgb 11.0 L Hct 35.7 MCV 79 L MCH 24 L MCHC 31 L RDW Coeff of Derick 14.7 Plt Count 318 Neut % (Auto) 84.3 H Lymph % (Auto) 12.0 L Fannin % (Auto) 3.1 Eos % (Auto) 0.1 Baso % (Auto) 0.1 Neut # (Auto) 11.30 H Lymph # (Auto) 1.60 Fannin # (Auto) 0.40 Eos # (Auto) 0.00 Baso # (Auto) 0.00 Abs Immat Gran (auto) 0.10 Imm/Tot Granulo (auto) 0.4 Urine Color Yellow Urine Appearance Clear Urine pH 7.0 Ur Specific [place] 1.025 Urine Protein Negative Urine Glucose (UA) Negative Urine Ketones 2+ A Urine Blood Negative Urine Nitrite Negative Urine Bilirubin Negative Urine Urobilinogen 0.2 Ur Leukocyte Esterase Trace A Urine RBC 0-2 Urine WBC 5-10 A Ur Squamous Epith Cells Moderate A Urine Bacteria None Blood Type AB Positive Antibody Screen NEGATIVE OB - PN: A/P Delivery Assessment and Plan (1) care following vaginal delivery: Status: Acute (2) , delivered, current hospitalization: Status: Acute Plan day: 1 Plan: routine care Comments: Anticipate discharge tomorrow.
[2023-06-11 08:43] VITALS: BP 104/69; PULSE 85; RESP 18; TEMP 36.5; O2SAT 98
[2023-06-11 16:18] VITALS: BP 99/64; PULSE 89; RESP 16; TEMP 36.6; O2SAT 100
[2023-06-11 22:30] VITALS: BP 96/64; PULSE 80; RESP 16; TEMP 36.7; O2SAT 100
[2023-06-12 00:58] LABS: Rapid Plasma Reagin (RPR) Non Reactive (Non Reactive)
[2023-06-12] MEDS: IBUPROFEN 600 MG TABLET PO (02:42)
[2023-06-12] MEDS: ACETAMINOPHEN 500 MG TABLET 1000 MG PO (04:14)
[2023-06-12 07:54] VITALS: BP 102/74; PULSE 77; TEMP 36.5; O2SAT 98
[2023-06-12 08:06] VITALS: RESP 16
--- NOTE | 2023-06-12 08:16 | PM.OBDSVD1 ---
DS: Providers Provider Date Seen: 06/12/23 Date of admission: 06/10/23 11:38 Primary care physician: Not a Local Provider Admitting Clinician: Delphine Patel MD Attending Physician on discharge: Ortega Wells CNM Date of Discharge: 06/12/23 DS: Diagnosis Discharge Diagnosis (1) , delivered, current hospitalization: Status: Acute (2) care following vaginal delivery: Status: Acute (3) MRSA (methicillin resistant staph aureus) culture positive: Status: Acute Problem details: Urine 05/13/2023 Exam Narrative: Exam Narrative: VSS, afebrile GENERAL APPEARANCE: ?normal affect, alert, no distress MOOD: ?appropriate HEENT: normocephalic, neck supple, full ROM CHEST: ?Symmetrical chest wall movement. ?Normal respiratory effort. ?Clear to auscultation HEART: ?regular rate and rhythm ABDOMEN: ?soft, non-tender. Uterine fundus is firm, 1 below Umbilicus, Midline and is appropriate for the stage of recovery. ?Bowel sounds present. PERINEUM: ?mild edema of the perineum, there is a periurethral laceration that is healing well. EXTREMITIES: ?normal and no edema Const: Vital Signs, click to edit/add: Vital Signs - 24 hr 06/11/23 08:43 06/11/23 16:18 06/11/23 22:30 Temperature 97.7 F 97.9 F 98.1 F Pulse Rate [Pulse Oximeter] 85 89 80 Respiratory Rate 18 16 16 Blood Pressure [Le ft Arm] 104/69 99/64 96/64 Pulse Oximetry 98 100 100 Oxygen Delivery Me thod Room Air Room Air Room Air 06/12/23 07:54 06/12/23 08:06 Temperature 97.7 F Pulse Rate [Pulse Oximeter] 77 Respiratory Rate 16 Blood Pressure [Le ft Arm] 102/74 Pulse Oximetry 98 Oxygen Delivery Me thod Documenting provider has reviewed patient's vital signs: yes OB - DS: Summary Hospital Course Hospital Course: Flor is a 22 y.o. who was admitted to L & D for spontaneous labor. ?She had an uncomplicated .?The patient feels well. ?The pain is well controlled with current medications. ?She has no new complaints. ?She is formula feeding and reports things are going well.? the patient has done well.? Vitals have been stable.? She has remained afebrile.? Has a good appetite, is tolerating a general diet. ?She is voiding without difficulty.? She is passing gas and has not had a bowel movement.? She is ambulating and denies any dizziness.? Has Small amount of rubra lochia. ?She is planning Paragard for prevention. Peripartum Data Infant delivery method: Vaginal Laceration description: Periurethral - 1st Degree complications: none [place] Gender: Female Discharge Plan: Home Status at Discharge Functional status at discharge: independent ambulation Overall status at discharge: patient is progressing back to baseline Time Spent with Patient Time attestation: Total time spent providing and/or coordinating discharge services: Time spent: Less than 30 minutes Discharge Plan Discharge Disposition: Home, Self-Care Date of Admission: 06/10/23 11:38 Attending Provider on Discharge: Ortega Wells Primary Care Provider: Provider,Not a Local Condition: Stable Anticipated Discharge Date/Time: 06/12/23 12:00 Discharge Medications: New acetaminophen 500 mg Tablet 1,000 mg PO Q6H PRN (Reason: pain/fever) Qty: 0 0RF ibuprofen 600 mg Tablet 600 mg PO Q6H PRNQty: 60 0RF docusate sodium 100 mg capsule 100 mg PO DAILY Qty: 90 2RF Continued famotidine 20 mg tablet 20 mg PO BID Qty: 60 2RF acetaminophen [Tylenol] 325 mg capsule 325 mg PO ONCE PRN omeprazole magnesium 20 mg tablet,delayed release (DR/EC) 20 mg PO QDAY Qty: 60 1RF metoclopramide HCl [Reglan] 10 mg tablet 10 mg PO Q6H PRN (Reason: headache) Qty: 30 0RF Rx Instructions: Take at onset of headache with tylenol. May repeat in 6 hours if needed. Discharge Orders: Discharge Order (Routine); Ordered 06/12/23 Ordered By: Ortega Wells Patient Education: OB Over the Counter Medication Information, OB Vaginal/Bottle Feeding Additional Instructions: Discharge instructions were reviewed with the patient including signs and symptoms of infection and home going medications Nothing vaginally for 6 weeks: no tampons or intercourse Off Work or School for 6 weeks 2-week visit: discuss infant feeding concerns, review control options and screen for anxiety/depression. 6-week visit for an annual exam. consultation services are available to all mothers and babies for the first year after delivery.? To make an appointment, please call [phone]. Activity Level: Activity as Tolerated Discharge Diet: Regular Follow Up Appointments: Provider,Not a Local [Primary Care Provider] - [facility] [Provider Group] Forms: [employer] Info Instructions
== END 2023-06-12 12:30 | disposition home or self-care (01) | DRG 807 ==
LOC: OB OUT 11:38 → OB 11:38
PROVIDERS: Admitting Provider Obstetrics & Gynecology; Visit Provider Obstetrics & Gynecology
DX: O34.211 Maternal care for low transverse scar from previous cesarean delivery (principal); Z37.0 Single live birth; O69.89X0 Labor and delivery complicated by other cord complications, not applicable or unspecified; O99.824 Streptococcus B carrier state complicating childbirth; Z86.14 Personal history of Methicillin resistant Staphylococcus aureus infection; O70.0 First degree perineal laceration during delivery; O62.3 Precipitate labor; Z3A.38 38 weeks gestation of pregnancy
CPT/HCPCS: 36415; 81001; 81003; 85025; 86592; 86850; 86900; 86901; 87081; 87086; T1013; A9270; J0290; J2001; J7120

== ENCOUNTER 2024-10-08 06:25 | Day surgery (SDC) | payer MEDICAID, SELFPAY ==
[2024-10-08] VITALS (13 sets, daily range): BP systolic 109–127; BP diastolic 61–75; PULSE 74–110; RESP 16–29; TEMP 36.5–37.1; O2SAT 94–100; BMI 33.8
--- OUTSIDE RECORDS SUMMARY | 2024-10-08 06:28 | XMS_ITS | Clinical Summary ---
Author Organization [facility] Address [address] [place] [address]. 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
--- OUTSIDE RECORDS SUMMARY | 2024-10-08 06:28 | XMS_ITS | Clinical Summary ---
Author Organization [employer] [facility] Address [address] [place] [id number] Care Team Providers Care Dispatch Supervisor Name Role Phone [facility], [facility] Primary Care Pro vider Allergies Active Allergy Reactions Criticality Noted Date Comments Vancomycin Itching 05/18/2020 Swollen eyes, tight numb face/neck Medications FeroSuL 325 mg (65 mg iron) tablet Take 325 mg by mouth once daily. 2 Active metoclopramide HCl (REGLAN) 10 mg tabletIndications:N ausea and vomiting during (HC) Take 1 Tablet (10 mg) by mouth 4 times daily if needed for Nausea/Vomi ting. 20 Tablet 2 Active rx metoclopramide (REGLAN) 10 mg tablet (ED DC MED)Indications:Hyp eremesis gravidarum (HC),Nausea and vomiting during (HC) Take 1 Tablet (10 mg) by mouth every 6 hours if needed for Nausea/Vomi ting. 4 Tablet 2 Active Active Problems Problem Noted Date Diagnosed Date FUO (fever of unknown origin) 05/17/2020 Sepsis 05/17/2020 Recurrent major depressive disorder 01/07/2019 Overview (01/22/2019): No current medication for this. Vitamin D deficiency 01/07/2019 Overview (01/22/2019): Last Assessment & Plan: Weekly ergocalciferol 50,000 international units. Anxiety and depression 01/07/2019 Overview (01/22/2019): No current medication for this. Antepartum anemia 01/07/2019 Overview (10/08/2020): Last Assessment & Plan: Ferrous sulfate 325 mg daily. Hemoglobin improved to 12.4 on 10/01/2018 Anxiety 01/07/2019 Overview (10/08/2020): No current medication for this. History of methamphetamine abuse 12/24/2017 Substance abuse in remission 12/24/2017 Overview (01/22/2019): Last use 09/2018. Negative urine drug screen on 10/01/2018. Resolved Problems Problem Noted Date Diagnosed Date Resolved Date 38 weeks gestation of 01/22/2019 05/22/2020 Nicolas breech presentation 01/22/2019 growth retardation, 2,000-2,499 grams 01/20/2019 05/22/2020 Overview (01/22/2019): The patient herself was a small baby, so this is likely constitutional IUGR. Ultrasound today shows EFW of 2270 g with growth at less than the 10th percentile. IUGR is symmetric. Referral to [facility] for level II US and consult due to this. BPP is 10/10 today. Amniotic fluid assessment is normal with LINDA of 9.5 cm and maximum vertical pocket of 2.9 cm. Unable to do dopplers here today. Timing of delivery will be based upon Maternal Medicine recommendations. Unstable lie with ante willis complication 01/07/2019 05/22/2020 Overview (01/22/2019): Last Assessment & Plan: Nicolas breech presentation on ultrasound today. Adequate amniotic fluid. Fundal placenta. Discussed option of ECV and risks of that versus the option of scheduled section and risks of that. She desires section. Will plan that at 39 weeks, on 01/28/2019 unless delivery is recommended earlier by [facility]. Encounter for supervision of normal first in third trimester 06/25/2018 05/22/2020 Immunizations Immunization Administration Dates Next Due DTaP 10/23/2005, 3,03/30/2001,01/12,2000 HIB-HepB (Comvax) 03/12/2002,01/12/2001,11/29/19 01 HPV 9 (Gardasil 9) 12/22/2015 Hepatitis A (Peds) 09/25/2007,10/16/2006 Human Papilloma Virus Vaccine 12/22/2015, 014 Inactivated Polio Vaccine 10/23/2005,12/2001,01/12/2001,11/28 Influenza, IIV4 (=>6mos) MDV 11/25/2018 MENINGOCOCCAL VACCINE 2 VIAL 2MO-55YO (MENVEO) 01/13/2018,10/01/2013 MMR 11/28/2021,10/23/2005,10/02/2001 Pneumococcal conj 7-Valent (Prevnar 7) 3 Tdap 11/25/2018,10/01/2013 Varicella Vaccine 10/16/2006,11/21/2003 Family History Medical History Relation Name Comments Good Health Father Diabetes Maternal Grandfather Hyperlipidemia Maternal Grandfather Hypertension Maternal Grandfather Diabetes Maternal Grandmother Hypertension Maternal Grandmother Good Health Mother Relation Name Status Comments Father Alive Maternal Grandfather Maternal Grandmother Alive Mother Alive Social History Tobacco Use Types Packs/Day Years Used Date Smoking Tobacco: Never Smokeless Tobacco: Never Tobacco Cessation:Counseling Given: Yes Comments:no exposure Alcohol Use Standard Drinks/Week Comments No 0 (1 standard drink = 0.6 oz pur e alcohol) PHQ-2 Answer Date Recorded PHQ-2 TOTAL SCORE 1 05/22/2020 [place] Depression Scale Answer Date Recorded [place] Depression Scale Total 12 03/17/2019 The thought of harming myself has occurred to me . Never 03/17/2019 Social Connections Answer Date Recorded Frequency of Communication with Friends and Fami ly Not on file 09/02/2023 Financial Resource Strain Answer Date R ecorded Difficulty of Paying Living Expenses 3 10/25/2022 Difficulty of Paying Living Expenses Not on file 10/25/2022 Food Insecurity Answer Date Recorded Worried About Running Out of Food in the Last Ye ar 1 10/25/2022 Transportation Needs Answer Date Record ed Lack of Transportation (Medical) 1 10/25/2022 Housing Stability Answer Date Recorded Unable to Pay for Housing in the Last Year 1 10/25/2022 Comments No Sex and Gender Information Value Date Recorded Sex Assigned at Not on file Legal Sex Female 5:44 AM APPLICATION SUPPORT ENGINEER Gender Identity Not on file Sexual Orientation Not on file Occupation Industry Job Start Date Job End Date Not on file Not on file Not on file Not on file Obstetrics History Para Term AB IAB SAB Ectopic Multiple Livin g Live Births 4 2 2 0 0 0 0 0 0 2 2 Date Outcome GA Total Labor Labor/2nd/3rd Weight Sex Type Anes PTL Maida A1 A5 Name Clin 2018 Term 38w 0d 2.59 kg (5 lb 11.4 oz) F C-Sec tion Spinal Livin g 8 9 BG FLOR MITCHELL Delivery Location:[facility]) Comments:Breech presen tation 2021 Term 38w 0d 2.69 kg (5 lb 15 oz) M Vag Livin g Last Filed Vital Signs Vital Sign Reading Time Taken Comments Blood Pressure 126/71 10/21/2022 9:42 PM CDT Pulse 83 10/21/2022 9:42 PM CDT Temperature 37 C (98.6 F) 10/21/2022 9:42 PM CDT Respiratory Rate 18 10/21/2022 9:42 PM CDT Oxygen Saturation 97% 10/21/2022 9:42 PM CDT Inhaled Oxygen Concentration - - Weight 71.1 kg (156 lb 12.8 oz) 01/15/2023 9:59 AM APPLICATION SUPPORT ENGINEER Height 144.8 cm (4' 9) 01/15/2023 9:59 AM APPLICATION SUPPORT ENGINEER Body Mass Index 33.93 01/15/2023 9:59 AM APPLICATION SUPPORT ENGINEER Plan of Treatment Health Maintenance Due Date Last Done Comments Hepatitis C screening for age 18-79 2018 04/27/2018 Depression screening for age 12+ 05/26/2021 05/26/2020, 05/22/2020, 05/17/2020, Additional history exists Pap test for age 21-65 2021 Chlamydia for age 16-24 08/31/2023 08/31/19 23, 04/21/2021, 08/12/2020, Additional history exists COVID-19 vaccine series (2023- season) 2023 BMI (ht and wt on same day) for age 18+ 01/16/2024 01/15/2023, 07/24/2020, 05/26/2020, Additional history exists Influenza Vaccine (#1) 2024 11/25/2018 Tetanus booster 11/25/2028 11/25/2018, 10/01/2013 Hepatitis B series for 19+ Completed 03/12, 01/12/2001, 2000 Pneumococcal series for age 6-49 Aged Out 09/20/2002 No longer eligible based on patient's age to complete this topic HPV series for age 9-26 Completed 12/22/19 16, 12/22/2015, 10/01/2013 HIV for age 15-65 Completed 08/30/2022, , 04/27/2018, Additional history exists Procedures Procedure Name Priority Date/Time Associated Diagnosis Comments GC CHLAMYDIA TRACH PROBE Routine 08/30/2022 8:15 PM CDT Urinary tract infection symptoms LC HIV-1/O/2, 4TH GENERATION STAT 08/30/2022 8:12 AM CDT Urinary tract infection symptoms ANTI HCV Routine 04/27/2018 8:56 AM CDT Vaginal discharge from Last 3 Months or Most Recently Relevant to Health Maintenance Results * Vaginal GC CHLAMYDIA TRACH PROBE (08/30/2022 8:15 PM CDT) CHLAMYDIA PROBE Negative 7:36 PM CDT [facility] N GONORRHOEAE PROBE Negative 08/31/2022 7:36 PM CDT [facility] Other VAGINAL SWAB / Unknown Non-Blood / Unknown 08/30/2022 8:15 PM CDT 08/30/2022 8:15 PM CDT us Lety Nicole NP MICROBIOLOGY Final Resu lt [facility] [address] [place] [address], [place] * LC HIV-1/O/2, 4TH GENERATION (08/30/2022 8:12 AM CDT) HIV Scr 4th Gen Non Reactive Non Reactive 09/03/2022 4:[address] [facility] ([facility]) Comment: HIV Negative HIV-1/HIV-2 antibodies and HIV-1 p24 antigen were NOT detected. There is no laboratory evidence of HIV infection. Blood BLOOD SPECIMEN / Unknown Venipuncture / Unknown 08/30/2022 8:12 AM CDT 08/30/2022 8:16 PM CDT Narrative [facility] ([facility]) - 09/03/2022 4:08 PM CDT Performed at: [address] [place] [id number] Scientific Illustrator: Cesar Jones MD, Phone: [phone] us Lety Nicole [facility] Final Resu lt [facility] ([facility]) [address] [place] [address], * ANTI HCV (04/27/2018 8:56 AM CDT) HEPATITIS C ANTIBODY Non-React marlen Non-React marlen 04/27/2018 4:18 PM CDT [facility] Comment:Antibodies to HCV no t detected; does not exclude the possibility of exposure to HCV. Blood BLOOD SPECIMEN / Unknown Venipuncture / Unknown 04/27/2018 8:56 AM CDT 04/27/2018 8:56 AM CDT us Laura COLIN SEND OUTS Final Result [facility] [address] [place] [address], [place] from Last 3 Months or Most Recently Relevant to Health Maintenance Insurance [facility] Advance Directives * Full Code (Latest Code Status on File) Date Activated Date Inactivated Comments 05/18/2020 12:41 AM 05/19/2020 3:21 PM Question Answer Comments Code Status Discussion: Discussed * Full Code Date Activated Date Inactivated Comments 01/21/2019 8:34 AM 01/24/2019 7:53 PM Care Teams Dispatch Supervisor Relationship Specialty Start Date End Date [facility], [address] [place] [address] PCP - General 09/28/20
--- OUTSIDE RECORDS SUMMARY | 2024-10-08 06:28 | XMS_ITS | Clinical Summary ---
Author Organization [facility] Address [address] [place] [id number] Care Team Providers Care Lead Carpenter Name Role Phone Kelsey Clark M.D. Primary Care Provide r Source Comments Patient records contain information from all sites at [facility]. For routine questions regarding patient records, call [phone] during business hours, M-F 8:00 AM - 5:00 PM Central Time. Record requests for emergency care only can be directed to [phone] at any time.[facility] Allergies No known active allergies Medications * This document contains information received from the source organization and may not represent a complete record from that organization. ergocalciferol (DrisdoL) 50,000 Unit capsuleIndicati ons:Deficiency Vitamin D Take 1 capsule (50,000 Units total) by mouth once a week. 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 Depression Major Recurrent Moderate 01/07/2019 Overview (04/20/2024): History of recurrent depression. Comorbidities: TOM in remission. -no SI, SA or self-harm behavior. -therapy: None. Medications: None. Assessment & Plan (04/20/2024 12:19 PM UROLOGIST MD): Given her increased symptoms of depression and feeling overwhelmed advise she consider nonpharmacological interventions, pharmacological interventions to help improve symptoms. She is open to therapy. Not wanting to start medication at this time. Briefly discussed different medication options including SSRI, SNRI another antidepressants. She will plan for close follow-up with PCP or care team provider. Will obtain some basic labs given her degree of worsening depression and fatigue. She is dealing with a lot surrounding her 3 children. Would benefit from parenting classes. We talked about different strategies for parenting. Did give her a printout on tips for preschool and toddlers as well as children with ADHD. I think having more resources would benefit her. I will place a consult for social scientist. She can also continue to work with her child's PCP to ensure that she is getting the support needed for the children. Deficiency Vitamin D 01/07/2019 Assessment & Plan (01/20/2019 10:20 AM UROLOGIST MD): Weekly ergocalciferol 50,000 international units. Assessment & Plan (01/07/2019 6:45 PM UROLOGIST MD): Weekly ergocalciferol 50,000 international units. 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 Negative urine drug screen on 10/01/2018. Assessment & Plan (04/20/2024 9:45 AM UROLOGIST MD): Sustained remission. Acne 07/11/2015 Dysmenorrhea 07/11/2015 Hirsutism 07/11/2015 Overweight Body Mass Index 25-29.9 Adult 014 Myopia 05/21/2010 Resolved Problems Problem Noted Date Diagnosed Date Resolved Date Retardation Growth 01/20/201905/2024 Overview (01/20/2019): The patient herself was a small baby, so this is likely constitutional IUGR. Ultrasound today shows EFW of 2270 g with growth at less than the 10th percentile. IUGR is symmetric. Referral to [facility] for level II US and consult due to this. BPP is 10/10 today. Amniotic fluid assessment is normal with LINDA of 9.5 cm and maximum vertical pocket of 2.9 cm. Unable to do dopplers here today. Timing of delivery will be based upon Maternal Medicine recommendations. Anemia 01/07/2019 04/20/2024 Assessment & Plan (01/20/2019 10:19 AM UROLOGIST MD): Ferrous sulfate 325 mg daily. Hemoglobin improved to 12.4 on 10/01/2018 Assessment & Plan (01/07/2019 6:46 PM UROLOGIST MD): Ferrous sulfate 325 mg daily. Hemoglobin improved to 12.4 on 10/01/2018 Maternal Care For Unstable L ie Single Gestation 01/07/2019 04/20/2024 Assessment & Plan (01/20/2019 10:18 AM UROLOGIST MD): Nicolas breech presentation on ultrasound today. Adequate amniotic fluid. Fundal placenta. Discussed option of ECV and risks of that versus the option of scheduled section and risks of that. She desires section. Will plan that at 39 weeks, on 01/28/2019 unless delivery is recommended earlier by MFM. Assessment & Plan (01/07/2019 6:44 PM UROLOGIST MD): Breech presentation on ultrasound today. Adequate amniotic fluid. Fundal placenta. Discussed need for repeat assessment at 37 weeks. If fetus still breech, discussed option of ECV and risks of that versus the option of scheduled section and risks of that. Examination Normal First Third Trimester 06/25/2018 04/20/2024 Immunizations Immunization Administration Dates Next Due 4vHPV (discontinued) 12/22/2015,10/01/2013 9vHPV 12/22/2015 DTaP (Infanrix, [employer]) 10/23/2005,,03/30/2001, 001,2000 HepA Pediatric/Adolescent 09/25/2007,10/16/2006 Hib-HepB 03/12/2002,01/12/2001,2000 IPV 10/23/2005, 2,01/12/2001, 001 Influenza, Injectable, Quadrivalent 11/25/2018 MCV4 (Menveo) 01/13/2018,10/01/2013 MMR 10/23/2005,10/02/2001 PCV7 (discontinued) 09/20/2002,06/10/2001,2001 Tdap 11/25/2018,10/01/2013 ANNA 10/16/2006,11/21/2003 Family History Medical History Relation Name Comments Diabetes Maternal Grandfather Hyperlipidemia Maternal Grandfather Hypertension Maternal Grandfather Diabetes Maternal Grandmother Hypertension Maternal Grandmother Relation Name Status Comments Maternal Grandfather Maternal Grandmother Social History Tobacco Use Types Packs/Day Years Used Date Smoking Tobacco: Never Smokeless Tobacco: Never Alcohol Use Standard Drinks/Week Comments Never 0 (1 standard drink = 0.6 oz pur e alcohol) [facility] Utilities Answer Date Recorded In the past 12 months has th e electric, gas, oil, or water company threatened to shut off services in your home? No 11/14/2023 Hunger Vital Sign Answer Date Recorded Within the past 12 months, y ou worried that your food would run out before you got the money to buy more. Patient declined Within the past 12 months, t he food you bought just didn't last and you didn't have money to get more. Patient declined PRAPARE - Transportation Answer Date Re corded In the past 12 months, has l ack of transportation kept you from medical appointments or from getting medications? Patient declined 11/14/2023 In the past 12 months, has l ack of transportation kept you from meetings, work, or from getting things needed for daily living? Patient declined 11/14/2023 Depression Answer Date Recor ded PHQ-9 Total Score (max 27) 10 05/21 Housing Stability Answer Date Recorded What is your living situation today? I have a [facility] place to live 11/14/2023 Comments No Sex and Gender Information Value Date Recorded Sex Assigned at Female 09/29/2017 2:24 PM CDT Legal Sex Female 11:33 PM UROLOGIST MD Gender Identity Female 09/29/2017 2:24 PM CDT Sexual Orientation Not on file Occupation Industry Job Start Date Job End Date Student - [employer] Not on file Not on file Not on f ile Last Filed Vital Signs Vital Sign Reading Time Taken Comments Blood Pressure 92/59 05/25/2024 1:28 PM CDT Pulse 90 05/25/2024 1:28 PM CDT Temperature 36.7 C (98.1 F) 11/30/2023 1:32 AM CDT Respiratory Rate 16 11/30/2023 4:15 AM CDT Oxygen Saturation 96% 11/30/2023 4:15 AM CDT Inhaled Oxygen Concentration - - Weight 80.6 kg (177 lb 11.1 oz) 05/25/2024 1:28 PM CDT Height 153.5 cm (5' 0.43) 04/20/2024 9:27 AM CS T Body Mass Index 34.21 04/20/2024 9:27 AM UROLOGIST MD Plan of Treatment Health Maintenance Due Date Last Done Comments Chlamydia and Gonorrhea Screening 2000 COVID-19 Vaccine ( season) 2023 Depression Monitoring (PHQ-9) 09/20/2024 05/21/2024 Cervical/Vaginal Cancer Screening 11/13/2024 11/14/2023, 11/14/2023 Influenza Vaccine (#1) 2024 11/25/2018 DTaP,Tdap,and Td Vaccines (8 - Td or Tdap) 11/25/2028 11/25/2018, 10/01/2013, 10/23/2005, Additional history exists Hepatitis B Vaccines Completed 03/12/2002, 01/12/2001, 2000 Pneumococcal vaccine (0-49 years) Aged Out 09/20/2002, 06/10/2001, 03/30/2001 No longer eligible based on patient's age to complete this topic IPV Vaccines Completed 10/23/2005, 03/20, 01/12/2001, Additional history exists Varicella Vaccines Completed 10/16/2006, 11/21/2003 Hepatitis A Vaccines Completed 09/25/2007, 10/17/19 07 HPV Vaccines Completed 12/22/2015, 05/2015, 10/01/2013 Hepatitis B Screening Discontinued 04/27/2018 HIV Screening Completed 04/20/2024 Hepatitis C Screening Completed 04/20/2024 Depression Monitoring (PHQ-9 for quality tracking) Completed 05/25/2024, 04/20/2024 Procedures Procedure Name Priority Date/Time Associated Diagnosis Comments HCV AB SCRN W/REFLEX TO HCV PCR, S Routine 04/20/2024 10:20 AM UROLOGIST MD Screening For Venereal Disease HIV-1/-2 AG AND AB SCREEN, PLASMA Routine 04/20/2024 10:20 AM UROLOGIST MD Screening For Venereal Disease HPV WITH GENOTYPING, PCR, THINPREP Routine 11/14/2023 1:49 PM CDT from Last 3 Months or Most Recently Relevant to Health Maintenance Results * HIV-1/-2 Ag and Ab Screen, Plasma (04/20/2024 10:20 AM UROLOGIST MD) HIV-1/-2 Ag and Ab Screen, P Negative Negative 04/20/2024 4:25 PM UROLOGIST MD [facility] Comment: Negative result does not rule out HIV infection. If exposure to HIV infection occurred <14 days ago, contact the laboratory to request addition of HIV-1/HIV-2 RNA detection, Plasma (HIP12). Blood (Blood, Venous) 04/20/2024 10:20 AM UROLOGIST MD 04/20/2024 1:58 PM UROLOGIST MD Juliana Pickard APRN .N.Zuly., M.S.N. LAB MICROBIOLOGY - BLOOD ORDERABLES Final Result [facility] [address] [place] [address] [facility] [address] [place] [address] * HCV Ab Scrn w/Reflex to HCV PCR, Serum (04/20/2024 10:20 AM UROLOGIST MD) Pathologist [facility] HCV Ab Screen, S Negative Negative 04/20/2024 3:10 PM UROLOGIST MD [facility] Comment: Consumption of high-dose biotin supplement within 12 hours of blood collection for this test can cause false-negative results. Blood (Blood, Venous) 04/20/2024 10:20 AM UROLOGIST MD 04/20/2024 1:58 PM UROLOGIST MD Norma Bergman APRN, Juliana .N.P., M.S.N. LAB MICROBIOLOGY - BLOOD ORDERABLES Final Result Performing Organization Address [facility] Co de Phone Number [facility] [address] [place] [address] [facility] [address] [place] [address] * (ABNORMAL) HPV with Genotyping, PCR, ThinPrep (11/14/2023 1:49 PM CDT) Specimen Source Cervix/Endoc ervix 11/17/2023 10:47 PM CDT SDS HPV High Risk type 16, PCR Negative Negative 11/17/2023 10:47 PM CDT SDSC HPV High Risk type 18, PCR Negative Negative 11/17/2023 10:47 PM CDT [facility] HPV other High Risk types, PCR Positive(A) Negative 11/17/2023 10:47 PM CDT [facility] Comment: Positive for one or more of the following Other High Risk HPV types: 31, 33, 35, 39, 45, 51, 52, 56, 58, 59, 66, and 68 This test was ordered in the context of a [facility] [employer] Cytology case; this result should be interpreted within the context of the [employer] cytology report. ----ADDITIONAL INFORMATION---- Testing was performed using the isael HPV assay ([employer] This report is intended for use in clinical monitoring and management of patients. It is not intended for use in medical-legal applications. 11/14/2023 1:49 PM CDT 11/17/2023 9:10 AM CDT Giuseppe Wasserman APRN, C.N.P., D.N.P. LAB MICROBIOLOG Y - GENERAL ORDERABLES Final Result Performing Organization Address [facility] Co de Phone Number [facility] [address] [place] [address] [facility] [address] [place] [address] [place] [phone] from Last 3 Months or Most Recently Relevant to Health Maintenance Insurance [employer] Care Teams Lead Carpenter Relationship Specialty Start Date End Date Kelsey Clark M.D. [address] [place] [address] PCP - General Family Medicine 11/14/23
[2024-10-08 06:41] LABS: Appearance Urine Clear (Clear)
--- NOTE | 2024-10-08 06:41 | ED_ITS ---
HPI - Abdominal Pain General Time Seen by Provider: 06:42 Date Seen: 10/08/24 Chief Complaint: Abdominal Pain Stated Complaint: abdominal pain Time Seen by Provider: 10/08/24 06:41 Source: patient Mode of arrival: ambulatory Limitations: no limitations History of Present Illness HPI narrative: 24-year-old female who comes in today with abdominal pain. Patient notes abrupt onset of epigastric and right upper quadrant pain about 2 hours ago. Nausea but no vomiting. No diarrhea. No urinary symptoms. Pain is improved now but still present. No prior abdominal surgeries, has IUD. Related Data Home Medications ?Medication ?Instructions ?Recorded ?Confirmed acetaminophen 325 mg capsule 325 mg PO ONCE PRN 06/10/23 (Tylenol) Previous Rx's ?Medication ?Instructions ?Recorded metoclopramide HCl 10 mg tablet 10 mg PO Q6H PRN heada neha #30 tabs 03/17/23 (Reglan) omeprazole magnesium 20 mg 20 mg PO QDAY #60 tabs 02/18 11/10 tablet,delayed release famotidine 20 mg tablet 20 mg PO BID #60 tabs acetaminophen 500 mg tablet 1,000 mg (2 x 500 mg) PO Q 6H PRN 06/12/23 pain/fever #0 tabs docusate sodium 100 mg capsule 100 mg PO DAILY #90 cap s 06/12/23 ibuprofen 600 mg tablet 600 mg PO Q6H PRN #60 tabs 0 06/12/23 Allergies Allergy/AdvReac Type Severity Reaction Status Date / Time No Known Allergies Allergy Verified 06/10/23 11:53 [facility] Medical History (Updated 10/08/24 @ 07:45 by Tomas Chambers MD) Cystitis ?N30.90 - Cystitis, unspecified without hematuria (ICD-10) Vulvovaginal candidiasis ?B37.31 - Acute candidiasis of vulva and vagina (ICD-10) , delivered (11/27/21) ?O34.219 - Maternal care for unspecified type scar from previous delivery (ICD-10) Asymmetric intrauterine growth restriction Vitamin D deficiency (01/07/19) ?E55.9 - Vitamin D deficiency, unspecified (ICD-10) Mild episode of recurrent major depressive disorder (01/07/19) ?F33.0 - Major depressive disorder, recurrent, mild (ICD-10) Methamphetamine abuse ?F15.10 - Other stimulant abuse, uncomplicated (ICD-10) History of prior with small for gestational age ?Z87.59 - Personal history of other complications of , childbirth and the puerperium (ICD-10) Fainting spell ?R55 - Syncope and collapse (ICD-10) Surgical History (Updated 06/20/23 @ 00:00 by Daryl Ernandez) Status post tonsillectomy and adenoidectomy (08/02/09) ?Z90.89 - Acquired absence of other organs (ICD-10) Patient desires vaginal after section () ?O34.219 - Maternal care for unspecified type scar from previous delivery (ICD-10) History of delivery, antepartum ?O34.219 - Maternal care for unspecified type scar from previous delivery (ICD-10) Social History What is your current living situation?: I presently have a place to live Problems where you live: no known problems In the past 12 months, utilities in danger of being shut off: no In past 12 months, lack of transportation kept you from medical appts, meetings, work, or getting things needed for daily living: no In the past 12 mos, have been you worried that your food would run out before you had money to buy more?: never true In the past 12 mos, the food you bought just didn't last and you didn't have money to buy more?: never true Smoking Status: Never smoker Non-prescribed substance use: denies use How often does anyone, including family, friends and others, physically hurt you : never How often does anyone, including family, friends and others, insult or talk down to you: never How often does anyone, including family, friends and others, threaten you with harm: never How often does anyone, including family, friends and others, scream or curse at you: never Exam Narrative: Exam Narrative: General: Well-developed and well-nourished, no acute distress Head: Atraumatic and normocephalic Eyes: Pupils are equal reactive, extraocular motions intact, conjunctiva clear ENT: External nose and ears are normal, posterior pharynx without erythema or exudate Neck: No midline cervical tenderness, full spontaneous range of motion the neck, trachea midline, no adenopathy Heart: Regular rate and rhythm no murmurs or thrills Lungs: Clear to auscultation bilaterally without wheezes or crackles Abdomen: Soft, mild right upper quadrant tenderness, nondistended with active bowel sounds Musculoskeletal: No tenderness, deformity, or edema Neurologic: Awake, alert, and oriented x3, no gross focal neurologic deficits, cranial nerves intact as tested Psych: Mood and affect are appropriate Skin: No rashes Const: Vital Signs, click to edit/add: Vital Signs - 24 hr 10/08/24 06:29 10/08/24 07:43 Temperature 98.5 F Pulse Rate [Pulse Oximeter] 74 89 Respiratory Rate 16 16 Blood Pressure [Ri ght Upper Arm] 119/61 112/66 Pulse Oximetry 100 100 Oxygen Delivery Me thod Room Air Room Air Course Course ED Course: Reviewed prior admission from May 2023 which was for , underwent C- section. Patient presents today with epigastric and right upper quadrant pain radiating to the back started about 2 hours prior to arrival. Pain is improved now from initial. Nausea with no vomiting. On exam here, vital is stable, epigastric and right upper quadrant tenderness. Suspect biliary colic, with mild tenderness now, suspect she may have passed stone. Insert also for acute pancr eatitis or acute cholecystitis. Labs and ultrasound ordered. Consider CT scan or MRCP depending on results and clinical course. Reevaluation(s) Time of Reevaluation #1: 07:43 Reevaluation #1: Labs in the pill interpreted by me with normal CBC, normal patent panel. Ultrasound demonstrates non mobile stone in the gallbladder neck but no findings of acute cholecystitis. Care was discussed with Dr. Quigley with general surgery and with the patient, she would like to proceed with cholecystectomy to day. This will be scheduled for 10:00 a.m.. Vital Signs Vital signs: Initial Vital Signs Temperature 98.5 F 10/08/24 06:29 Temperature Source Temporal Artery Scan 10/08/24 06:29 Pulse Rate 74 10/08/24 06:29 Respiratory Rate 16 10/08/24 06:29 Blood Pressure 119/61 10/08/24 06:29 Blood Pressure Mean 80 10/08/24 06:29 Blood Pressure Position Semi-Fowlers 10/08/24 06:29 Pulse Oximetry 100 10/08/24 06:29 Oxygen Delivery Method Room Air 10/08/24 06:29 Vital Signs Temperature 98.5 F 10/08/24 06:29 Pulse Rate 74 10/08/24 06:29 Respiratory Rate 16 10/08/24 06:29 Blood Pressure 119/61 10/08/24 06:29 Pulse Oximetry 100 10/08/24 06:29 Oxygen Delivery Method Room Air 10/08/24 06:29 Temperature 98.5 F 10/08/24 06:29 Pulse Rate 89 10/08/24 07:43 Respiratory Rate 16 10/08/24 07:43 Blood Pressure 112/66 10/08/24 07:43 Pulse Oximetry 100 10/08/24 07:43 Oxygen Delivery Method Room Air 10/08/24 07:43 MDM - Abdominal Pain Lab Data Labs: Lab Results 10/08/24 10/08/24 Range/Units 06:34 06:54 WBC 8.62 (4.50-11.00) K/uL RBC 4.41 (4.00-5.20) m/uL Hgb 10.0 L (12.0-16.0) gm/dL Hct 32.8 L (33.0-51.0) % MCV 74 L (80-100) fL MCH 23 L (26-34) pg MCHC 31 L (32-36) gm/dL RDW Coeff of Derick 15.7 H (11.5-15.5) % Plt Count 444 H (140-440) K/uL Neut % (Auto) 64.5 (42.0-72.0) % Lymph % (Auto) 29.1 (20-44) % [place] % (Auto) 4.6 (0.0-11.0) % Eos % (Auto) 0.9 (0.0-7.0) % Baso % (Auto) 0.1 (0.0-3.0) % Neut # (Auto) 5.55 (1.7-7.0) K/uL Lymph # (Auto) 2.51 (0.90-2.90) K/uL [place] # (Auto) 0.40 (0.00-0.90) K/UL Eos # (Auto) 0.08 (0.00-0.50) K/uL Baso # (Auto) 0.01 (0.00-0.30) K/uL Abs Immat Gran (auto) 0.07 (0.00-0.30) K/uL Imm/Tot Granulo (auto) 0.8 % Sodium 138 (135-149) mmol/L Potassium 4.0 (3.6-5.1) mmol/L Chloride 104 (96-114) mmol/L Carbon Dioxide 26 (20-32) mmol/L Anion Gap 8 (7-15) mEq/L BUN 14 (5-24) mg/dL Creatinine 0.7 (0.5-1.5) mg/dL Estimated Creat Clear 93.51 Estimated GFR 124 ml/min Glucose 120 H (60-115) mg/dL Calcium 9.3 (8.4-10.6) mg/dL Total Bilirubin 0.2 (0.1-1.5) mg/dL Direct Bilirubin 0.2 (0.0-0.5) mg/dL AST 25 (12-35) U/L ALT 15 (4-35) U/L Alkaline Phosphatase 58 (40-150) U/L Total Protein 7.5 (6.0-8.3) g/dL Albumin 4.3 (3.3-5.0) g/dL Lipase 124 (23-300) U/L Urine Color Yellow (Yellow) Urine Appearance Clear (Clear) Urine pH 7.0 (5.0-8.5) Ur Specific Lamar 1.025 (1.000-1.030) Urine Protein Negative (Negative) Urine Glucose (UA) Negative (Negative) Urine Ketones Negative (Negative) Urine Blood Negative (Negative) Urine Nitrite Negative (Negative) Urine Bilirubin Negative (Negative) Urine Urobilinogen 0.2 (0.2-1.0) Ur Leukocyte Esterase Negative (Negative) Urine RBC 0-2 (0-2) Urine WBC 0-2 (0-5) Ur Squamous Epith Cells Few (None-Few) Urine Bacteria Few A (None) Urine HCG, Qual Negative (Negative) Discharge Plan Discharge Clinical Impression: Symptomatic cholelithiasis Patient Disposition: XFER to OR Condition: Stable Follow Up/Referrals: Provider,Not a Local [Primary Care Provider, Family Practice]
[2024-10-08 06:44] LABS: Ur HCG Qualitative* Negative (Negative)
--- NOTE | 2024-10-08 06:47 | CRLHL7_ITS ---
For Patients: As a result of the Century Cures Act, medical imaging exams and procedure reports are released immediately into your electronic medical record. You may view this report before your referring provider. If you have questions, please contact your health care provider. Indication: Right upper quadrant abdominal pain Technique: Sonography of the abdomen was performed limited to the structures discussed below Comparison: There are no prior studies for comparison Findings: There are multiple stones identified in the gallbladder. This includes a 1.4 centimeter nonmobile stone in the gallbladder neck. Gallbladder wall thickness is normal at 2 millimeters. No pericholecystic fluid. The common duct measures 3 millimeters which is normal. The liver measures 14.4 centimeters. No focal mass. Abnormal echogenicity probably due to fatty infiltration. No intrahepatic biliary ductal dilation. The pancreas is obscured due to overlying bowel gas The right kidney is unremarkable in size and appearance. The right kidney measures 11.9 x 4.0 x 6.2 centimeters. The main portal vein is patent with appropriate direction of flow Impression: 1. Cholelithiasis including a 1.4 centimeter nonmobile stone in the gallbladder neck. However, there is no current ultrasound findings of acute cholecystitis. No wall thickening, pericholecystic fluid or biliary ductal dilation. 2. The common duct measures 3 millimeters which is normal. 3. Probable hepatic steatosis. 4. Normal-appearing right kidney. 5. Pancreas obscured by bowel gas Dictated by Mohit Guidry MD @ 10/08/2024 7:22:04 AM (Electronically Signed)
[2024-10-08 07:07] LABS: Hematocrit 32.8 % (33.0-51.0); Hemoglobin* 10.0 gm/dL (12.0-16.0); Immature Granulocytes Abs Auto 0.07 K/uL (0.00-0.30); Immature Granulocytes Pct Auto 0.8 %; Lymphocytes Absolute Auto 2.51 K/uL (0.90-2.90); Mean Corpuscular HGB Conc 31 gm/dL (32-36); Mean Corpuscular Hemoglobin 23 pg (26-34); Mean Corpuscular Volume 74 fL (80-100); RDW Coefficient of Variation % 15.7 % (11.5-15.5); Red Blood Count 4.41 m/uL (4.00-5.20); White Blood Count* 8.62 K/uL (4.50-11.00)
[2024-10-08 07:08] LABS: Slide Review Reflex No
[2024-10-08 07:13] LABS: Albumin* 4.3 g/dL (3.3-5.0)
[2024-10-08 07:14] LABS: Chloride* 104 mmol/L (96-114); Potassium* 4.0 mmol/L (3.6-5.1); Sodium* 138 mmol/L (135-149)
[2024-10-08 07:16] LABS: Blood Urea Nitrogen* 14 mg/dL (5-24); Creatinine* 0.7 mg/dL (0.5-1.5); Est. Creatinine Clearance* 93.51; Estimated Glomerular Filt Rate 124 ml/min
[2024-10-08 07:17] LABS: Alanine Aminotransferase* 15 U/L (4-35); Alkaline Phosphatase* 58 U/L (40-150); Anion Gap 8 mEq/L (7-15); Aspartate Amino Transferase* 25 U/L (12-35); Bilirubin Direct* 0.2 mg/dL (0.0-0.5); Bilirubin Total* 0.2 mg/dL (0.1-1.5); Calcium* 9.3 mg/dL (8.4-10.6); Carbon Dioxide* 26 mmol/L (20-32); Glucose* 120 mg/dL (60-115); Total Protein* 7.5 g/dL (6.0-8.3)
--- NOTE | 2024-10-08 08:54 | PM.GSCN ---
History of Present Illness Consult details Date Seen: 10/08/24 Consult date: 10/08/24 Narrative: 24-year-old female presents to emergency room with epigastric abdominal pain. Patient states that her pain started in the morning and woke her up from sleep at 4:00 a.m.. The pain was severe and patient decided to present to the emergency room. She had nausea but no vomiting. She had at least 5 similar episodes in the past that resolved on its own. She was never evaluated for this pain. The painful episodes are described as crampy and usually lasted for several hours. Her pain is currently improving. Patient is not sure what brings the pain on. However, her family states that she eats very unhealthy. In the emergency room I personally reviewed her workup. Her WBC was normal. Her liver function tests were normal. Her lipase was normal. Her hemoglobin is 10. An abdominal ultrasound was obtained that showed cholelithiasis, there was a larger stone in the neck of the gallbladder, the gallbladder wall was measured at 2 mm and there was no pericholecystic fluid. The common bile duct is normal in size. Review of Systems Narrative: General: no fevers HENT: no problems swallowing CV: no shortness of breath Resp: no cough GI: No nausea, vomiting, abdominal pain : no dysuria, no increased urinary frequency, no hematuria Skin: no new rashes Musculoskeletal: no back pain Neuro: no muscle weakness Psyche: no depression, no anxiety PFSH PFSH Medical History Cystitis ?N30.90 - Cystitis, unspecified without hematuria (ICD-10) Vulvovaginal candidiasis ?B37.31 - Acute candidiasis of vulva and vagina (ICD-10) , delivered (11/27/21) ?O34.219 - Maternal care for unspecified type scar from previous delivery (ICD-10) Asymmetric intrauterine growth restriction Vitamin D deficiency (01/07/19) ?E55.9 - Vitamin D deficiency, unspecified (ICD-10) Mild episode of recurrent major depressive disorder (01/07/19) ?F33.0 - Major depressive disorder, recurrent, mild (ICD-10) Methamphetamine abuse ?F15.10 - Other stimulant abuse, uncomplicated (ICD-10) History of prior with small for gestational age ?Z87.59 - Personal history of other complications of , childbirth and the puerperium (ICD-10) Fainting spell ?R55 - Syncope and collapse (ICD-10) Surgical History Status post tonsillectomy and adenoidectomy (08/02/09) ?Z90.89 - Acquired absence of other organs (ICD-10) Patient desires vaginal after section () ?O34.219 - Maternal care for unspecified type scar from previous delivery (ICD-10) History of delivery, antepartum ?O34.219 - Maternal care for unspecified type scar from previous delivery (ICD-10) Social History What is your current living situation?: I presently have a place to live Problems where you live: no known problems In the past 12 months, utilities in danger of being shut off: no In past 12 months, lack of transportation kept you from medical appts, meetings, work, or getting things needed for daily living: no In the past 12 mos, have been you worried that your food would run out before you had money to buy more?: never true In the past 12 mos, the food you bought just didn't last and you didn't have money to buy more?: never true Smoking Status: Never smoker Non-prescribed substance use: denies use How often does anyone, including family, friends and others, physically hurt you: never How often does anyone, including family, friends and others, insult or talk down to you: never How often does anyone, including family, friends and others, threaten you with harm: never How often does anyone, including family, friends and others, scream or curse at you: never Meds Home Medications and Allergies Home Medications ?Medication ?Instructions ?Recorded ?Confirmed ?Type acetaminophen 325 mg capsule 325 mg PO ONCE PRN 12/11/21 06/10/23 History (Tylenol) metoclopramide HCl 10 mg tablet 10 mg PO Q6H PRN headache #30 tabs 03/17/23 06/10/23 Rx (Reglan) omeprazole magnesium 20 mg 20 mg PO QDAY #60 tabs 03/17/23 06/10/23 Rx tablet,delayed release famotidine 20 mg tablet 20 mg PO BID #60 tabs 05/13/23 06/10/23 Rx acetaminophen 500 mg tablet 1,000 mg (2 x 500 mg) PO Q6H PRN 06/12/23 Rx pain/fever #0 tabs docusate sodium 100 mg capsule 100 mg PO DAILY #90 caps 06/12/23 Rx ibuprofen 600 mg tablet 600 mg PO Q6H PRN #60 tabs 06/12/23 Rx Allergies Allergy/AdvReac Type Severity Reaction Status Date / Time No Known Allergies Allergy Verified 06/10/23 11:53 Exam Narrative: Exam Narrative: General appearance: Alert, cooperative, and in no distress Pulmonary: Chest symmetric, lungs clear bilaterally Cardiovascular Heart: Regular rate and rhythm, S1, S2, no murmurs/rubs/gallops Gastrointestinal Abdominal: soft, not distended, Tender to palpation in epigastrium and right upper quadrant with negative Arreola sign. Skin: Normal skin color, texture, and turgor. No rashes or lesions. Psychiatric: Alert, cooperative, normal affect. Const: Vital Signs, click to edit/add: Vital Signs - 24 hr 10/08/24 06:29 10/08/24 07:43 Temperature 98.5 F Pulse Rate [Pulse Oximeter] 74 89 Respiratory Rate 16 16 Blood Pressure [Ri ght Upper Arm] 119/61 112/66 Pulse Oximetry 100 100 Oxygen Delivery Me thod Room Air Room Air Results Labs Labs: Abnormal lab results 10/08/24 10/08/24 Range/Units 06:34 06:54 Hgb 10.0 L (12.0-16.0) gm/dL Hct 32.8 L (33.0-51.0) % MCV 74 L (80-100) fL MCH 23 L (26-34) pg MCHC 31 L (32-36) gm/dL RDW Coeff of Derick 15.7 H (11.5-15.5) % Plt Count 444 H (140-440) K/uL Glucose 120 H (60-115) mg/dL Urine Bacteria Few A (None) Diabetes panel 10/08/24 Range/Units 06:54 Sodium 138 (135-149) mmol/L Potassium 4.0 (3.6-5.1) mmol/L Chloride 104 (96-114) mmol/L Carbon Dioxide 26 (20-32) mmol/L BUN 14 (5-24) mg/dL Creatinine 0.7 (0.5-1.5) mg/dL Glucose 120 H (60-115) mg/dL Calcium 9.3 (8.4-10.6) mg/dL AST 25 (12-35) U/L ALT 15 (4-35) U/L Alkaline Phosphatase 58 (40-150) U/L Total Protein 7.5 (6.0-8.3) g/dL Albumin 4.3 (3.3-5.0) g/dL Calcium panel 10/08/24 Range/Units 06:54 Calcium 9.3 (8.4-10.6) mg/dL Albumin 4.3 (3.3-5.0) g/dL Pituitary panel 10/08/24 Range/Units 06:54 Sodium 138 (135-149) mmol/L Potassium 4.0 (3.6-5.1) mmol/L Chloride 104 (96-114) mmol/L Carbon Dioxide 26 (20-32) mmol/L BUN 14 (5-24) mg/dL Creatinine 0.7 (0.5-1.5) mg/dL Glucose 120 H (60-115) mg/dL Calcium 9.3 (8.4-10.6) mg/dL Adrenal panel 10/08/24 Range/Units 06:54 Sodium 138 (135-149) mmol/L Potassium 4.0 (3.6-5.1) mmol/L Chloride 104 (96-114) mmol/L Carbon Dioxide 26 (20-32) mmol/L BUN 14 (5-24) mg/dL Creatinine 0.7 (0.5-1.5) mg/dL Glucose 120 H (60-115) mg/dL Calcium 9.3 (8.4-10.6) mg/dL Total Bilirubin 0.2 (0.1-1.5) mg/dL AST 25 (12-35) U/L ALT 15 (4-35) U/L Alkaline Phosphatase 58 (40-150) U/L Total Protein 7.5 (6.0-8.3) g/dL Albumin 4.3 (3.3-5.0) g/dL All other labs normal. Progress Note:A&P Assessment and plan (1) Symptomatic cholelithiasis: Status: Acute Plan 24-year-old female presents with abdominal pain that is most likely due to biliary colic and possible early acute cholecystitis. I discussed with the patient her laboratory and ultrasound findings. On the ultrasound patient has evidence of cholelithiasis but no evidence of acute cholecystitis. Her WBC is normal. On clinical exam she has tenderness to palpation in epigastrium and right upper quadrant but her Arreola sign is negative. I discussed with the patient that he would be reasonable to either proceed with laparoscopic cholecystectomy or follow-up in outpatient clinic to discuss laparoscopic cholecystectomy. Other causes of her epigastric pain such as gastritis or peptic ulcer disease were also discussed with the patient. She did have some acid reflux symptoms today but usually does not have acid reflux. Patient would like to proceed with surgery. The procedure was discussed in detail. The risks associated procedure including infection, bleeding, injury to the intra-abdominal organs and injury to the common bile duct were all discussed with the patient, and she agreed to proceed. I will also treat this patient for acid reflux for 6 weeks with PPI.
--- NOTE | 2024-10-08 09:40 | P.GSOP_ITS ---
Operative Note Date of procedure: 10/08/24 Pre-op diagnosis: 1. Biliary colic. 2. Early acute cholecystitis. Post-op diagnosis: 1. Symptomatic cholelithiasis. 2. Acute cholecystitis. Type of Procedure: 1. Laparoscopic cholecystectomy. Indications: 24-year-old female presented to emergency room with epigastric pain that started early in the morning. The pain woke the patient up from sleep. The pain was persistent and severe and patient presented to emergency room. She had nausea but no vomiting. Upon patient's workup she was found to have cholelithiasis. The gallbladder wall was normal in thickness and there was no pericholecystic fluid. The common bile duct were not was normal in size. Patient's labs revealed normal WBC and normal liver function tests. On clinical exam patient had tenderness to palpation in epigastrium and right upper quadrant but negative Arreola sign. Given patient's clinical history discussion was held with the patient to either continue with conservative management and re-evaluate the patient in clinic for symptomatic cholelithiasis or proceed with laparoscopic cholecystectomy. Patient desired to proceed with laparoscopic cholecystectomy. The procedure was discussed in detail. The risks associated procedure including infection, bleeding, injury to intra-abdominal organs, injury to the common bile duct, and the need for additional procedures were all discussed with the patient, and she agreed to proceed. Procedure Description: After discussing the risks and benefits of the procedure, the patient signed informed consent.? The operative site was marked and the patient was brought to the operating room and placed on the operating table in supine position.? Care was taken to pad the patient's pressure points.?? The patient was then intubated by anesthesia.?? The operative site was then prepped and draped in the usual sterile fashion.? A time-out was then performed. A 5-mm laparoscopy port was placed in the left upper quadrant guided by a 5-mm laparoscope placed into a translucent trochar.~ Passage through the layers of the abdominal wall was visualized with the laparoscope.~ A pneumoperitoneum was established. A 0-degree 5-mm laparoscope was advanced into the abdomen. The abdomen was briefly surveyed, and no adhesions were noted. A 10-mm port were placed infraumbilically and two more 5 mm ports were placed on the right under direct visualization by laparoscope. The camera was then changed to 10 mm 30- degree scope and placed into the abdomen through the 10 mm port. The left upper quadrant port entrance was examined and no injury to intra-abdominal organs was identified. The gallbladder was identified, the fundus grasped and retracted cephalad. The infundibulum was grasped and retracted laterally, exposing the peritoneum overlying the triangle of Calot. This was then divided and exposed in a blunt fashion and with hook cautery. Common bile duct was not identified but care was taken not to injure it. The cystic duct was clearly identified and bluntly dissected circumferentially. Cystic artery was identified and tissues around it were dissected off. The right hepatic artery was also identified and was posterior to the cystic duct. Care was taken to dissect the gallbladder wall without injuring the right hepatic artery. Small veins were noted posterior to the cystic duct. Those were clipped on the patient's side and divided with cautery near the gallbladder. The cystic artery and the cystic duct were clearly going into the gallbladder. The cystic artery was clipped with 2 5 mm clips on the patient's side and a single clip on the specimen side and divided with scissors between the clips. This allowed for better visualization of the medial cystic duct. The cystic duct was then doubly ligated with surgical clips on the patient's side and singly clipped on the gallbladder side and divided. The gallbladder was dissected from the liver bed in retrograde fashion using hookcautery. Edema was seen in the gallbladder wall during this dissection. Bleeding was seen from the gallbladder bed and that was controlled with clips or cautery. The gallbladder was placed into an Endo-Catch bag and removed through the infraumbilical incision. The fascia of the infraumbilical incision had to be incised to accommodate removal the gallbladder. This was done with cautery. Surgical site was examined for bleeding. No bleeding was seen in the surgical field. The fascia of the infraumbilical incision was then closed with interrupted 0-0 vicryl sutures using Adolfo Dayron needle under direct visualization. Pneumoperitoneum was completely reduced after viewing removal of the trocars und er direct vision. The skin was then closed with 4-0 monocryl and steristrips were applied. Instrument, sponge, and needle counts were correct at closure and at the conclusion of the case. The patient was transferred to PACU in stable condition. Findings: Gallstones seen in the gallbladder. Edema noted in the gallbladder wall. Surgeon: Leonid Quigley MD Estimated blood loss (mL): 5 Specimen: Gallbladder Condition: stable Disposition: PACU
[2024-10-08] MEDS: LACTATED RINGERS 1000 ML 1,000 ML 100 ML IV ×2 (10:07→11:15)
--- NOTE | 2024-10-08 10:22 | W.ANESCHARGE ---
Anesthesia Charges Start Date/Time Anesthesia Start Date: 10/08/24 Anesthesia Start Time: 10:07 Stop Date/Time Anesthesia Stop Date: 10/08/24 Anesthesia Stop Time: 11:46 Summary Emergency: MDA Coding CPT Codes CPT Codes: ANESTH SURG UPPER ABDOMEN - 16735 ([id number]) P3 - PATIENT W/SEVERE SYS DISEASE Additional Codes: Summary - Emergency: MDA ([id number])
--- NOTE | 2024-10-08 11:44 | P.ANES_ITS ---
Anesthesia Charges Start Date/Time Anesthesia Start Date: 10/08/24 Anesthesia Start Time: 10:07 Stop Date/Time Anesthesia Stop Date: 10/08/24 Anesthesia Stop Time: 11:46 Summary Emergency: GRADE AND CENTER MARKER Coding CPT Codes CPT Codes: ANESTH SURG UPPER ABDOMEN - 08261 ([id number]) P3 - PATIENT W/SEVERE SYS DISEASE, QK - GARMENT MENDER 2-4 CNCRNT ANES PROC Additional Codes: Summary - Emergency: GRADE AND CENTER MARKER ([id number])
--- NOTE | 2024-10-08 11:44 | W.ANESCHARGE ---
Anesthesia Charges Start Date/Time Anesthesia Start Date: 10/08/24 Anesthesia Start Time: 10:07 Stop Date/Time Anesthesia Stop Date: 10/08/24 Anesthesia Stop Time: 11:46 Summary Emergency: INFRASTRUCTURE ENGINEER Coding CPT Codes CPT Codes: ANESTH SURG UPPER ABDOMEN - 29341 ([id number]) P3 - PATIENT W/SEVERE SYS DISEASE, QK - GLOST TILE SHADER 2-4 CNCRNT ANES PROC Additional Codes: Summary - Emergency: INFRASTRUCTURE ENGINEER ([id number])
[2024-10-08] MEDS: HYDROCODONE-ACETAMIN 5-325 MG 1 TAB PO (12:50)
== END 2024-10-08 13:25 | disposition home or self-care (01) ==
LOC: ED 08:05 → SS 08:15
PROVIDERS: Emergency Provider Family Medicine; Visit Provider Surgery
PROC: 0FT44ZZ Resection of Gallbladder, Percutaneous Endoscopic Approach (ICD-10-PCS; CPT 47562; principal; 2024-10-08 10:00)
DX: K80.00 Calculus of gallbladder with acute cholecystitis without obstruction (principal)
CPT/HCPCS: 47562; 00790; 36415; 76705; 80048; 80076; 81001; 81025; 83690; 85025; 87086; 88304; 99140; 99285; A9270; J0690; J1100; J1171; J1630; J2405; J2704; J3010; J7120

== ENCOUNTER 2024-10-11 18:55 | Emergency (ER) | payer MEDICAID, SELFPAY ==
[2024-10-11 19:02] VITALS: BP 114/72; PULSE 69; RESP 16; TEMP 36.6; O2SAT 100; BMI 33.2
--- NOTE | 2024-10-11 19:18 | ED.GENADULT ---
HPI - General Adult General Chief complaint: Post Op Complication Stated complaint: Post surgery pain Time Seen by Provider: 10/11/24 19:07 History of Present Illness HPI narrative: This 24-year-old female comes in with postoperative pain. She had a cholecystectomy done 3 days ago and has been taking Tylenol and ibuprofen without sufficient relief. She reports pain in her right mid abdomen but does not have any fevers. She is able to take food and drink and arrives here with normal vital signs. She did receive a prescription for oxycodone but she checked at the pharmacy today and it had not yet been filled. Related Data Home Medications ?Medication ?Instructions ?Recorded ?Confirmed acetaminophen 325 mg capsule 325 mg PO ONCE PRN 12/11/21 10/11/24 (Tylenol) Previous Rx's ?Medication ?Instructions ?Recorded metoclopramide HCl 10 mg tablet 10 mg PO Q6H PRN headache #30 tabs 03/17/23 (Reglan) omeprazole magnesium 20 mg 20 mg PO QDAY #60 tabs 03/17/23 tablet,delayed release famotidine 20 mg tablet 20 mg PO BID #60 tabs 05/13/23 acetaminophen 500 mg tablet 1,000 mg (2 x 500 mg) PO Q6H PRN 06/12/23 pain/fever #0 tabs docusate sodium 100 mg capsule 100 mg PO DAILY #90 caps 06/12/23 ibuprofen 600 mg tablet 600 mg PO Q6H PRN #60 tabs 06/12/23 hydrocodone 5 mg-acetaminophen 325 1 tab PO Q6H PRN pain #20 tabs 10/08/24 mg tablet lansoprazole 30 mg capsule,delayed 30 mg PO DAILY #30 caps 10/08/24 release (Prevacid) polyethylene glycol 3350 17 gram 17 g PO DAILY #14 ea 10/08/24 oral powder packet (Miralax) Allergies Allergy/AdvReac Type Severity Reaction Status Date / Time No Known Allergies Allergy Verified 10/11/24 19:06 Review of Systems Status of ROS: Reports: 10 or more systems reviewed and unremarkable except as noted in History and below Narrative: Constitutional: No fevers, no weight gain or loss. Eyes: No discharge. No vision changes. HENT: No congestion, no sore throat, no ear pain. Cardiovascular: No chest pain, no palpitations. Respiratory: No shortness of breath, no wheezes, no cough. Gastrointestinal: No vomiting, no diarrhea. Abdominal pain as described above. Genitourinary: No dysuria, no hematuria. Musculoskeletal: Normal range of motion. Skin: No rashes, no pruritis. Neurological: No dizziness, weakness, sensory change, speech change. Endo/Heme/Allergies: No bruising or bleeding. No polydipsia. Pysch: no suicidality, no anxiety, no insomnia. All other systems reviewed and are negative. [facility] Medical History Cystitis ?N30.90 - Cystitis, unspecified without hematuria (ICD-10) Vulvovaginal candidiasis ?B37.31 - Acute candidiasis of vulva and vagina (ICD-10) , delivered (11/27/21) ?O34.219 - Maternal care for unspecified type scar from previous delivery (ICD-10) Asymmetric intrauterine growth restriction Vitamin D deficiency (01/07/19) ?E55.9 - Vitamin D deficiency, unspecified (ICD-10) Mild episode of recurrent major depressive disorder (01/07/19) ?F33.0 - Major depressive disorder, recurrent, mild (ICD-10) Methamphetamine abuse ?F15.10 - Other stimulant abuse, uncomplicated (ICD-10) History of prior with small for gestational age ?Z87.59 - Personal history of other complications of , childbirth and the puerperium (ICD-10) Fainting spell ?R55 - Syncope and collapse (ICD-10) Surgical History Status post tonsillectomy and adenoidectomy (08/02/09) ?Z90.89 - Acquired absence of other organs (ICD-10) Patient desires vaginal after section () ?O34.219 - Maternal care for unspecified type scar from previous delivery (ICD-10) History of delivery, antepartum ?O34.219 - Maternal care for unspecified type scar from previous delivery (ICD-10) Social History What is your current living situation?: I presently have a place to live Problems where you live: no known problems In the past 12 months, utilities in danger of being shut off: no In past 12 months, lack of transportation kept you from medical appts, meetings, work, or getting things needed for daily living: no In the past 12 mos, have been you worried that your food would run out before you had money to buy more?: never true In the past 12 mos, the food you bought just didn't last and you didn't have money to buy more?: never true Smoking Status: Never smoker Non-prescribed substance use: denies use How often does anyone, including family, friends and others, physically hurt you: never How often does anyone, including family, friends and others, insult or talk down to you: never How often does anyone, including family, friends and others, threaten you with harm: never How often does anyone, including family, friends and others, scream or curse at you: never Exam Narrative: Exam Narrative: Constitutional: Well-developed, well-nourished, no acute distress. HEENT: Normocephalic, atraumatic. Neck: Normal range of motion. Nontender. Supple. Heart: Regular. No murmurs. Normal rate. Intact distal pulses. Lungs: Clear to auscultation. No chest discomfort. No wheezes, rhonchi, or rales. Abdomen: Normal bowel sounds. No rebound tenderness. Tenderness in the right mid abdomen. Surgical wounds appear normal without sign of erythema or drainage. Genitalia: Deferred. Back: No midline tenderness. Normal range of motion. Extremities: Normal range of motion. No injury. Skin: Intact. No rash. Warm. No erythema or pallor. Neurologic: No altered sensation. No weakness. Alert and oriented. Psychiatric: No suicidality. No anxiety or depression. No insomnia. Nursing notes and vitals signs are reviewed. Const: Vital Signs, click to edit/add: Vital Signs - 24 hr 10/11/24 19:02 Temperature 97.9 F Pulse Rate [Pulse Oximeter] 69 Respiratory Rate 16 Blood Pressure [Ri ght Upper Arm] 114/72 Pulse Oximetry 100 Oxygen Delivery Me thod Room Air Course Vital Signs Vital signs: Initial Vital Signs Temperature 97.9 F 10/11/24 19:02 Temperature Source Temporal Artery Scan 10/11/24 19:02 Pulse Rate 69 10/11/24 19:02 Pulse Rhythm Regular 10/11/24 19:02 Pulse Strength 3+ Normal 10/11/24 19:02 Respiratory Rate 16 10/11/24 19:02 Blood Pressure 114/72 10/11/24 19:02 Blood Pressure Mean 86 10/11/24 19:02 Blood Pressure Position Sitting 10/11/24 19:02 Pulse Oximetry 100 10/11/24 19:02 Oxygen Delivery Method Room Air 10/11/24 19:02 Vital Signs Temperature 97.9 F 10/11/24 19:02 Pulse Rate 69 10/11/24 19:02 Respiratory Rate 16 10/11/24 19:02 Blood Pressure 114/72 10/11/24 19:02 Pulse Oximetry 100 10/11/24 19:02 Oxygen Delivery Method Room Air 10/11/24 19:02 Temperature 97.9 F 10/11/24 19:02 Pulse Rate 69 10/11/24 19:02 Respiratory Rate 16 10/11/24 19:02 Blood Pressure 114/72 10/11/24 19:02 Pulse Oximetry 100 10/11/24 19:02 Oxygen Delivery Method Room Air 10/11/24 19:02 Medical Decision Making MDM Narrative Medical decision making narrative: This patient comes in with postoperative pain. She has not taken any prescription medicines for pain relief. She arrives here with normal vital signs and does not have any rebound tenderness or concerning findings on exam. I did discuss the role of imaging and lab results but at this time it was agreed to better attend to her postoperative pain which seems to be typical for her surgery. She received [facility] prescriptions for Toradol and Flynn. I did advise her regarding signs and symptoms that would indicate a need for return re-evaluation. Discharge Plan Discharge Clinical Impression: Post-operative pain Patient Disposition: Home, Self-Care Condition: Stable Additional Instructions: Take prescribed medicines as needed and directed. Increase activity as tolerated. Follow up with MD return if worsening symptoms occur. Prescriptions: No Action famotidine 20 mg tablet 20 mg PO BID Qty: 60 2RF acetaminophen [Tylenol] 325 mg capsule 325 mg PO ONCE PRN omeprazole magnesium 20 mg tablet,delayed release (DR/EC) 20 mg PO QDAY Qty: 60 1RF metoclopramide HCl [Reglan] 10 mg tablet 10 mg PO Q6H PRN (Reason: headache) Qty: 30 0RF Rx Instructions: Take at onset of headache with tylenol. May repeat in 6 hours if needed. acetaminophen 500 mg Tablet 1,000 mg PO Q6H PRN (Reason: pain/fever) Qty: 0 0RF ibuprofen 600 mg Tablet 600 mg PO Q6H PRNQty: 60 0RF docusate sodium 100 mg capsule 100 mg PO DAILY Qty: 90 2RF polyethylene glycol 3350 [Miralax] 17 gram powder in packet 17 g PO DAILY Qty: 14 0RF hydrocodone-acetaminophen 5-325 mg tablet 1 tab PO Q6H PRN (Reason: pain) Qty: 20 0RF lansoprazole [Prevacid] 30 mg capsule,delayed release(DR/EC) 30 mg PO DAILY Qty: 30 2RF Follow Up/Referrals: Provider,Not a Local [Primary Care Provider, Family Practice] Stand Alone Forms: MyHealth Info Instructions
--- OUTSIDE RECORDS SUMMARY | 2024-10-11 19:24 | XMS_ITS | Clinical Summary ---
Author Organization [facility] Address [address] [place] [address]. 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
--- OUTSIDE RECORDS SUMMARY | 2024-10-11 19:24 | XMS_ITS | Clinical Summary ---
Author Organization [facility] Address [address] [place] [id number] Care Team Providers Care Soaker Name Role Phone Kelsey Clark M.D. Primary Care Provide r Source Comments Patient records contain information from all sites at [facility]. For routine questions regarding patient records, call [phone] during business hours, M-F 8:00 AM - 5:00 PM Central Time. Record requests for emergency care only can be directed to [phone] at any time.[facility] Allergies No known active allergies Medications [...] None. Assessment & Plan (04/20/2024 12:19 PM CANOPY STRINGER): Given her increased symptoms of depression and [...] her. I will place a consult for clinical social worker. She can also continue to work with her child's PCP to ensure that she is getting the support needed for the children. Deficiency Vitamin D 01/07/2019 Assessment & Plan (01/20/2019 10:20 AM CANOPY STRINGER): Weekly ergocalciferol 50,000 international units. Assessment & Plan (01/07/2019 6:45 PM CANOPY STRINGER): Weekly ergocalciferol 50,000 international units. 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 Negative urine drug screen on 10/01/2018. Assessment & Plan (04/20/2024 9:45 AM CANOPY STRINGER): Sustained remission. Acne 07/11/2015 Dysmenorrhea 07/11/2015 Hirsutism [...] 10th percentile. IUGR is symmetric. Referral to [facility] for level II US and consult due to this. BPP is 10/10 today. Amniotic fluid assessment is normal with LINDA of 9.5 cm and maximum vertical pocket of 2.9 cm. Unable to do dopplers here today. Timing of delivery will be based upon Maternal Medicine recommendations. Anemia 01/07/2019 04/20/2024 Assessment & Plan (01/20/2019 10:19 AM CANOPY STRINGER): Ferrous sulfate 325 mg daily. Hemoglobin improved to 12.4 on 10/01/2018 Assessment & Plan (01/07/2019 6:46 PM CANOPY STRINGER): Ferrous sulfate 325 mg daily. Hemoglobin improved to 12.4 on 10/01/2018 Maternal Care For Unstable L ie Single Gestation 01/07/2019 04/20/2024 Assessment & Plan (01/20/2019 10:18 AM CANOPY STRINGER): Nicolas breech presentation on ultrasound today. Adequate amniotic fluid. Fundal placenta. Discussed option of ECV and risks of that versus the option of scheduled section and risks of that. She desires section. Will plan that at 39 weeks, on 01/28/2019 unless delivery is recommended earlier by MFM. Assessment & Plan (01/07/2019 6:44 PM CANOPY STRINGER): Breech presentation on ultrasound today. Adequate amniotic [...] drink = 0.6 oz pur e alcohol) [facility] Utilities Answer Date Recorded In the past [...] your living situation today? I have a [facility] place to live 11/14/2023 Comments No Sex and Gender Information Value Date Recorded Sex Assigned at Female 09/29/2017 2:24 PM CDT Legal Sex Female 11:33 PM CANOPY STRINGER Gender Identity Female 09/29/2017 2:24 PM CDT [...] Body Mass Index 34.21 04/20/2024 9:27 AM CANOPY STRINGER Plan of Treatment Health Maintenance Due Date Last Done Comments Chlamydia and Gonorrhea Screening 2000 COVID-19 Vaccine ( season) 2023 Depression Monitoring (PHQ-9) 09/20/2024 05/21/2024 Influenza Vaccine (#1) 2024 11/25/2018 Cervical/Vaginal Cancer Screening 11/13/2024 11/14/2023, 11/14/2023 DTaP,Tdap,and Td Vaccines (8 - Td or [...] HCV PCR, S Routine 04/20/2024 10:20 AM CANOPY STRINGER Screening For Venereal Disease HIV-1/-2 AG AND AB SCREEN, PLASMA Routine 04/20/2024 10:20 AM CANOPY STRINGER Screening For Venereal Disease HPV WITH GENOTYPING, PCR, THINPREP Routine 11/14/2023 1:49 PM CDT from Last 3 Months or Most Recently Relevant to Health Maintenance Results * HIV-1/-2 Ag and Ab Screen, Plasma (04/20/2024 10:20 AM CANOPY STRINGER) HIV-1/-2 Ag and Ab Screen, P Negative Negative 04/20/2024 4:25 PM CANOPY STRINGER [facility] Comment: Negative result does not rule out HIV infection. If exposure to HIV infection occurred <14 days ago, contact the laboratory to request addition of HIV-1/HIV-2 RNA detection, Plasma (HIP12). Blood (Blood, Venous) 04/20/2024 10:20 AM CANOPY STRINGER 04/20/2024 1:58 PM CANOPY STRINGER Juliana Pickard APRN .N.Zuly., M.S.N. LAB MICROBIOLOGY - BLOOD ORDERABLES Final Result [facility] [address] [place] [address] [facility] [address] [place] [address] * HCV Ab Scrn w/Reflex to HCV PCR, Serum (04/20/2024 10:20 AM CANOPY STRINGER) Pathologist [facility] HCV Ab Screen, S Negative Negative 04/20/2024 3:10 PM CANOPY STRINGER [facility] Comment: Consumption of high-dose biotin supplement within 12 hours of blood collection for this test can cause false-negative results. Blood (Blood, Venous) 04/20/2024 10:20 AM CANOPY STRINGER 04/20/2024 1:58 PM CANOPY STRINGER Norma Bergman APRN, Juliana .N.P., M.S.N. LAB MICROBIOLOGY - BLOOD ORDERABLES Final Result Performing Organization Address [facility] Co de Phone Number [facility] [address] [place] [address] [facility] [address] [place] [address] * (ABNORMAL) HPV with Genotyping, PCR, ThinPrep (11/14/2023 1:49 PM CDT) Specimen Source Cervix/Endoc ervix 11/17/2023 10:47 PM CDT SDS HPV High Risk type 16, PCR Negative Negative 11/17/2023 10:47 PM CDT SDSC HPV High Risk type 18, PCR Negative Negative 11/17/2023 10:47 PM CDT [facility] HPV other High Risk types, PCR Positive(A) Negative 11/17/2023 10:47 PM CDT [facility] Comment: Positive for one or more of the following Other High Risk HPV types: 31, 33, 35, 39, 45, 51, 52, 56, 58, 59, 66, and 68 This test was ordered in the context of a [facility] [employer] Cytology case; this result should be interpreted within the context of the [employer] DEPART[employer] cytology report. ----ADDITIONAL INFORMATION---- Testing was performed using the isael HPV assay ([employer] This report is intended for use in clinical monitoring and management of patients. It is not intended for use in medical-legal applications. 11/14/2023 1:49 PM CDT 11/17/2023 9:10 AM CDT Giuseppe Wasserman APRN, C.N.P., D.N.P. LAB MICROBIOLOG Y - GENERAL ORDERABLES Final Result Performing Organization Address [facility] Co de Phone Number [facility] [address] [place] [address] [facility] [address] [place] [address] [place] [id number] from Last 3 Months or Most Recently Relevant to Health Maintenance Insurance [employer] Care Teams Soaker Relationship Specialty Start Date End Date Kelsey Clark M.D. [address] [place] [address] PCP - General Family Medicine 11/14/23
--- OUTSIDE RECORDS SUMMARY | 2024-10-11 19:24 | XMS_ITS | Clinical Summary ---
Author Organization [employer] [facility] Address [address] [place] [address] Care Team Providers Care Parts Sales Advisor Name Role Phone [facility], [facility] Primary Care Pro vider Allergies Active Allergy [...] 10th percentile. IUGR is symmetric. Referral to [facility] for level II US and consult due [...] 01/28/2019 unless delivery is recommended earlier by [facility]. Encounter for supervision of normal first in [...] Date Recorded PHQ-2 TOTAL SCORE 1 05/22/2020 Douglas Depression Scale Answer Date Recorded Douglas Depression Scale Total 12 03/17/2019 The thought [...] on file Legal Sex Female 5:44 AM MANUFACTURER'S REPRESENTATIVE Gender Identity Not on file Sexual [...] g 8 9 BG FLOR MITCHELL Delivery Location:[facility]) Comments:Breech presen tation 2021 Term 38w 0d [...] (156 lb 12.8 oz) 01/15/2023 9:59 AM MANUFACTURER'S REPRESENTATIVE Height 144.8 cm (4' 9) 01/15/2023 9:59 AM MANUFACTURER'S REPRESENTATIVE Body Mass Index 33.93 01/15/2023 9:59 AM MANUFACTURER'S REPRESENTATIVE Plan of Treatment Health Maintenance Due Date [...] CDT) CHLAMYDIA PROBE Negative 7:36 PM CDT [facility] N GONORRHOEAE PROBE Negative 08/31/2022 7:36 PM CDT [facility] Other VAGINAL SWAB / Unknown Non-Blood / Unknown 08/30/2022 8:15 PM CDT 08/30/2022 8:15 PM CDT us Lety Nicole NP MICROBIOLOGY Final Resu lt [facility] [address] [place] [address], [place] * LC HIV-1/O/2, 4TH GENERATION (08/30/2022 8:12 AM CDT) HIV Scr 4th Gen Non Reactive Non Reactive 09/03/2022 4:08 PM CDT [facility] ([facility]) Comment: HIV Negative HIV-1/HIV-2 antibodies and HIV-1 p24 antigen were NOT detected. There is no laboratory evidence of HIV infection. Blood BLOOD SPECIMEN / Unknown Venipuncture / Unknown 08/30/2022 8:12 AM CDT 08/30/2022 8:16 PM CDT Narrative [facility] ([facility]) - 09/03/2022 4:08 PM CDT Performed at: [address] [place] [id number] Cup Machine Operator: Cesar Jones MD, Phone: [phone] us Lety Nicole MOISTURE CONDITIONER OPERATOR LABORATORY Final Resu lt [facility] ([facility]) [address] [place] [address], * ANTI HCV (04/27/2018 8:56 AM CDT) HEPATITIS C ANTIBODY Non-React marlen Non-React marlen 04/27/2018 4:18 PM CDT [facility] Comment:Antibodies to HCV no t detected; does not exclude the possibility of exposure to HCV. Blood BLOOD SPECIMEN / Unknown Venipuncture / Unknown 04/27/2018 8:56 AM CDT 04/27/2018 8:56 AM CDT us Laura COLIN SEND OUTS Final Result [facility] [address] [place] [address], [place] from Last 3 Months or Most Recently Relevant to Health Maintenance Insurance [facility] Advance Directives * Full Code (Latest Code Status on File) Date Activated Date Inactivated Comments 05/18/2020 12:41 AM 05/19/2020 3:21 PM Question Answer Comments Code Status Discussion: Discussed * Full Code Date Activated Date Inactivated Comments 01/21/2019 8:34 AM 01/24/2019 7:53 PM Care Teams Parts Sales Advisor Relationship Specialty Start Date End Date [facility], [address] [place] [address] PCP - General 09/28/20
== END 2024-10-11 19:44 | disposition home or self-care (01) ==
LOC: ED 19:22
PROVIDERS: Emergency Provider Emergency Medicine Emergency Medical Services
DX: G89.18 Other acute postprocedural pain (principal)
CPT/HCPCS: 99283; 99284